=== PATIENT | female | born 1985 | race Caucasian/White ===

== ENCOUNTER 2019-01-01 09:07 | Day surgery (SDC) | payer MEDICAID ==
[2018-12-30 12:27] VITALS: BMI 24.3
--- NOTE | 2019-01-01 07:57 | P.GSHP ---
History of Present Illness H&P Date: 01/01/19 CHIEF COMPLAINT: GERD and colon screen HISTORY OF PRESENT ILLNESS: The patient is a 33-year-old female who presents with gastroesophageal reflux disease and change in bowel habits Upper and lower endoscopy were offered for further evaluation and management. PAST MEDICAL HISTORY: Please see list. PAST SURGICAL HISTORY: Please see list. MEDICATIONS: Please see list. ALLERGIES: Please see list. SOCIAL HISTORY: No illicit drug use FAMILY HISTORY: No reports of Crohn disease or ulcerative colitis. REVIEW OF ORGAN SYSTEMS: CONSTITUTIONAL: No reports of fevers or chills. PHYSICAL EXAM: VITAL SIGNS: Stable GENERAL: Well-developed pleasant in no acute distress. HEENT: No scleral icterus. Extraocular movements grossly intact. Moist buccal mucosa. NECK: Supple without lymphadenopathy. CHEST: Unlabored respirations. Equal bilateral excursions. CARDIOVASCULAR: Regular rate and rhythm. Distal 2+ pulses. ABDOMEN: Soft, nondistended. MUSCULOSKELETAL: No clubbing, cyanosis, or edema. ASSESSMENT: 1. Gastroesophageal reflux disease 2. Change in bowel habits PLAN: 1. Recommend proceeding with an upper and lower endoscopy Past Medical History Past Medical History: Asthma, GERD/Reflux, Rheumatoid Arthritis (RA), Thyroid Disorder Additional Past Medical History / Comment(s): ENDOMETRIOSIS. PCOS History of Any Multi-Drug Resistant Organisms: None Reported Past Surgical History: Cholecystectomy, Tubal Ligation Additional Past Surgical History / Comment(s): Cervical conization 08/2017 Past Anesthesia/Blood Transfusion Reactions: No Reported Reaction Smoking Status: Former smoker - Past Family History Father Family Medical History: Hyperlipidemia, Hypertension Mother Family Medical History: Hypertension Medications and Allergies Home Medications Medication Instructions Recorded Confirmed Type Levothyroxine Sodium [Synthroid] 75 mcg PO DAILY 05/08/18 12/30/18 History Ibuprofen [Motrin] 600 mg PO Q8HR PRN #30 tab 05/10/18 12/30/18 Rx Adalimumab [Humira Pen] 40 mg SQ Q14D 12/30/18 12/30/18 History Biotin 5,000 mcg PO DAILY 12/30/18 12/30/18 History Folic Acid 2 mg PO DAILY 12/30/18 12/30/18 History Lansoprazole [Prevacid] 30 mg PO DAILY 12/30/18 12/30/18 History Methotrexate/Pf [Rasuvo 30 mg/0.6 30 mg SQ Q14D 12/30/18 12/30/18 History ml Autoinj] Allergies Allergy/AdvReac Type Severity Reaction Status Date / Time azithromycin AdvReac Severe Abdominal Verified 12/30/18 12:15 Pain
[~2019-01-01 09:07] MED LIST: LACTATED RINGERS 1,000 ML IV SCH; LIDOCAINE 1% 20 ML VIAL (10MG/ML) FOR IV START INTRADERMA PRN
[2019-01-01 10:09] VITALS: RESP 16; TEMP 98
[2019-01-01] MEDS ORDERED: PROPOFOL 10 MG/ML 20 ML VIAL IV ONE (10:31)
[2019-01-01] MEDS ORDERED: LIDOCAINE 1% INJ 10MG/ML (20 ML MDV) ONE (10:31)
[2019-01-01] MEDS ORDERED: GLYCOPYRROLATE 0.2 MG/ML 2 ML VIAL ONE (10:31)
--- NOTE | 2019-01-01 10:49 | P.PCN ---
Date of Procedure: 01/01/19 Description of Procedure: PREOPERATIVE DIAGNOSIS: Gastroesophageal reflux disease. POSTOPERATIVE DIAGNOSIS: Gastric polyps Gastroesophageal junction ulcer with active bleeding Gastroesophageal reflux disease. OPERATION: Esophagogastroduodenoscopy with biopsies along antrum. SURGEON: Jenna Del Real MD ANESTHESIA: MAC. INDICATIONS: The patient is a 35-year-old female who presents with a history of reflux disease. Benefits and risks of the procedure were described. Informed consent was obtained. DESCRIPTION: The patient was brought into the endoscopy suite and laid in the left lateral decubitus position. An Olympus gastroscope was passed along the posterior oropharynx down to the distal esophagus where the squamocolumnar junction was encountered at 40 cm from the incisors. The stomach was entered and no bile reflux was found. Additional findings are listed below. Biopsies with cold forc eps were obtained of the antrum. The first through third portion of the duodenum was examined and unremarkable. Retroflexion of the scope confirmed Hill grade 2 lower esophageal valve. The squamocolumnar junction demonstrated LA grade A erosive esophagitis. The stomach was desufflated. The patient tolerated the procedure well. FINDINGS: Squamocolumnar junction 40 cm from the incisors. Diaphragmatic hiatus at 40 cm. Hill grade 2 lower esophageal valve. LA grade A erosive esophagitis with ulceration and active bleeding along GE junction No active duodenitis. Chronic gastritis with benign gastric polyps RECOMMENDATIONS: Upper endoscopy as needed.
--- NOTE | 2019-01-01 11:00 | P.PCN ---
Date of Procedure: 01/01/19 Description of Procedure: PREOPERATIVE DIAGNOSIS: Change in bowel habits POSTOPERATIVE DIAGNOSIS: Change in bowel habits OPERATION: Colonoscopy to the ileocecal valve and appendiceal orifice. SURGEON: Jenna Del Real MD. ANESTHESIA: MAC. INDICATIONS: The patient is a 33-year-old female who presents with abdominal pain and change in bowel habits. Benefits and risks were described and informed consent was obtained. DESCRIPTION OF PROCEDURE: The patient had undergone Suprep. She had been brought into the operating room and laid in the left lateral decubitus position. After adequate intravenous sedation, the rectum was examined with 2% lidocaine jelly. No external hemorrhoids were encountered. The rectal tone was within normal limits. No lesions were palpated in the rectal vault. An Olympus colonoscope was advanced until the ileocecal valve and appendiceal orifice were clearly viewed. The prep was excellent with clear visualization of the mucosal folds. The scope was removed with visualization of each mucosal fold. No scattered diverticulosis was encountered. No colonic polyps were found. No evidence of focal colitis was found. Retroflexion of the scope demonstrated grade 1 internal hemorrhoids without active bleeding or inflammation. The colon was desufflated. The patient had tolerated the procedure well. Withdrawal time was over 6 minutes. FINDINGS: Aronchick preparation quality scale 1 (1-5) Internal hemorrhoids, grade 1 No external prolapsed hemorrhoids. No arteriovenous malformations. No adenomatous polyps. No sigmoid diverticulosis No focal colitis. RECOMMENDATIONS: Lower endoscopy as needed Plan - Discharge Summary Discharge Rx Participant: Yes New Discharge Prescriptions: Discontinued Ibuprofen [Motrin] 600 mg PO Q8HR PRN #30 tab PRN Reason: Pain No Action Levothyroxine Sodium [Synthroid] 75 mcg PO DAILY Adalimumab [Humira Pen] 40 mg SQ Q14D Methotrexate/Pf [Rasuvo 30 mg/0.6 ml Autoinj] 30 mg SQ Q14D Lansoprazole [Prevacid] 30 mg PO DAILY Folic Acid 2 mg PO DAILY Biotin 5,000 mcg PO DAILY Discharge Medication List Levothyroxine Sodium [Synthroid] 75 mcg PO DAILY 05/08/18 [History] Adalimumab [Humira Pen] 40 mg SQ Q14D 12/30/18 [History] Biotin 5,000 mcg PO DAILY 12/30/18 [History] Folic Acid 2 mg PO DAILY 12/30/18 [History] Lansoprazole [Prevacid] 30 mg PO DAILY 12/30/18 [History] Methotrexate/Pf [Rasuvo 30 mg/0.6 ml Autoinj] 30 mg SQ Q14D 12/30/18 [History] Follow up Appointment(s)/Referral(s): Jenna Del Real MD [STAFF PHYSICIAN] - 01/14/19 Patient Instructions/Handouts: Diet for Stomach Ulcers and Gastritis (ED), Esophagitis (DC) Activity/Diet/Wound Care/Special Instructions: Colonoscopy as needed Discharge Disposition: HOME SELF-CARE
[2019-01-01 11:30] VITALS: BP 109/73; PULSE 71
== END 2019-01-01 10:12 | disposition home or self-care (01) ==
LOC: ORWHC2ENDO 09:07
PROVIDERS: ATTEND Surgery Plastic and Reconstructive Surgery
DX: K22.10 Ulcer of esophagus without bleeding (principal); K29.50 Unspecified chronic gastritis without bleeding; K64.0 First degree hemorrhoids; K31.7 Polyp of stomach and duodenum; K21.9 Gastro-esophageal reflux disease without esophagitis; M06.9 Rheumatoid arthritis, unspecified; E07.9 Disorder of thyroid, unspecified; E28.2 Polycystic ovarian syndrome; Z87.42 Personal history of other diseases of the female genital tract; J45.909 Unspecified asthma, uncomplicated; Z90.49 Acquired absence of other specified parts of digestive tract; Z98.51 Tubal ligation status; Z87.891 Personal history of nicotine dependence; Z82.49 Family history of ischemic heart disease and other diseases of the circulatory system; Z79.890 Hormone replacement therapy; Z79.899 Other long term (current) drug therapy; Z88.1 Allergy status to other antibiotic agents
CPT/HCPCS: 88305; 45378; 43239; J2001; J2704

== ENCOUNTER 2020-03-16 19:22 | Emergency (ER) | payer MEDICAID, BC ==
[2020-03-16] MEDS ORDERED: SODIUM CHLORIDE 0.9% 1,000 ML IV SCH (19:30)
--- NOTE | 2020-03-16 19:36 | ED ---
General Adult HPI - General Chief complaint: Abdominal Pain Stated complaint: post op complications Time Seen by Provider: 03/16/20 19:28 Source: patient, EMS, RN notes reviewed Mode of arrival: EMS Limitations: no limitations - History of Present Illness Initial comments: Patient is a pleasant 35-year-old female presenting to the emergency Department with abdominal discomfort. Onset of symptoms was earlier this morning. Symptoms have progressively worsened since that time. Patient feels weak and chilled today. Patient did have uterine ablation done yesterday. No significant vaginal bleeding. - Related Data Home Medications Medication Instructions Recorded Confirmed Levothyroxine Sodium [Synthroid] 75 mcg PO DAILY 05/08/18 01/01/19 Adalimumab [Humira Pen] 40 mg SQ Q14D 12/30/18 01/01/19 Biotin 5,000 mcg PO DAILY 12/30/18 01/01/19 Folic Acid 2 mg PO DAILY 12/30/18 01/01/19 Lansoprazole [Prevacid] 30 mg PO DAILY 12/30/18 01/01/19 Methotrexate/Pf [Rasuvo 30 mg/0.6 30 mg SQ Q14D 12/30/18 01/01/19 ml Autoinj] Allergies Allergy/AdvReac Type Severity Reaction Status Date / Time azithromycin AdvReac Severe Abdominal Verified 03/16/20 19:29 Pain Review of Systems ROS Statement: Those systems with pertinent positive or pertinent negative responses have been documented in the HPI. ROS Other: All systems not noted in ROS Statement are negative. Constitutional: Reports: fever, chills Eyes: Denies: eye pain ENT: Denies: ear pain Respiratory: Denies: cough, dyspnea Cardiovascular: Denies: chest pain Endocrine: Reports: fatigue Gastrointestinal: Reports: abdominal pain, nausea Genitourinary: Denies: dysuria Musculoskeletal: Denies: back pain Skin: Denies: rash Neurological: Denies: weakness Past Medical History Past Medical History: Rheumatoid Arthritis (RA) Additional Past Medical History / Comment(s): ENDOMETRIOSIS. PCOS History of Any Multi-Drug Resistant Organisms: None Reported Past Surgical History: Ablation, Cholecystectomy, Tubal Ligation Additional Past Surgical History / Comment(s): Cervical conization 08/2017, uterine ablation Past Anesthesia/Blood Transfusion Reactions: No Reported Reaction Past Psychological History: Depression Smoking Status: Never smoker Past Alcohol Use History: Occasional Past Drug Use History: None Reported - Past Family History Father Family Medical History: Hyperlipidemia, Hypertension Mother Family Medical History: Hypertension General Exam Limitations: no limitations General appearance: alert, in no apparent distress Head exam: Present: normocephalic Eye exam: Present: normal appearance Neck exam: Present: normal inspection Respiratory exam: Present: normal lung sounds bilaterally Cardiovascular Exam: Present: tachycardia GI/Abdominal exam: Present: soft, tenderness (Mild to minimal tenderness lower mid abdomen). Absent: distended External exam: Present: normal external exam (RN susanne present) Speculum exam: Present: other (Mild dried blood. No significant drainage) By manual exam: Present: uterine tenderness (Mild) Extremities exam: Present: normal inspection. Absent: pedal edema, calf tenderness Neurological exam: Present: alert Psychiatric exam: Present: normal affect, normal mood Skin exam: Present: normal color Course Vital Signs 03/16/20 03/16/20 03/16/20 19:24 20:19 21:20 Temperature 101.8 F H 100.8 F H Pulse Rate 144 H 152 H 16 L Respiratory 20 24 28 H Rate Blood Pressure 98/60 73/44 95/48 O2 Sat by Pulse 100 99 100 Oximetry 03/16/20 03/16/20 21:48 22:25 Temperature 102.8 F H 102.3 F H Pulse Rate 163 H 160 H Respiratory 28 H 30 H Rate Blood Pressure 106/49 95/39 O2 Sat by Pulse 99 98 Oximetry EKG Findings - EKG Comments: EKG Findings:: Sinus tachycardia 141. SC 120. QRS 74. QT 288. QTC 441. Normal axis. Normal QRS. No acute ST change. Procedures - Sepsis Sepsis Focused Exam #1 Time Sepsis Criteria Met: 22:00 Sepsis Focused Exam Date: 03/16/20 Sepsis Focused Exam Time: 22:54 Sepsis Focused Exam Complete: Yes Vital Signs & RN Notes Reviewed: Yes Capillary Refill: < 2 Seconds: Fingers, Toes Peripheral Pulses: Normal: Radial (R), Radial (L) Skin Color: Normal for Patient Respiratory Exam: normal lung sounds Cardiovascular Exam: tachycardia Medical Decision Making - Medical Decision Making Case was discussed twice with Dr. Stuart who did come evaluate the patient. She also does not see an obvious source of patient's infection. Case was also discussed with Dr. bennett as well as Dr. Sanchez and Dr. Saez. Dr. Daniel Saez did recommend transfer to facility where she had her procedure they will accept. Case was discussed in detail with Dr. Egan, who will accept transfer to [facility]. Patient and family updated. Patient was evaluated several times. Patient's blood pressure has improved following several liters of fluid. Still limited fluid output. Patient does present with severe sepsis however unable to find source of infection at this time. IV antibiotics have been started. Patient did have uterine ablation done yesterday with Dr. An at [facility]. - Lab Data Result diagrams: 03/16/20 19:36 03/16/20 19:36 Lab Results 03/16/20 03/16/20 03/16/20 Range/Units 19:36 19:36 19:36 WBC 15.2 H (3.8-10.6) k/uL RBC 4.01 (3.80-5.40) m/uL Hgb 11.7 (11.4-16.0) gm/dL Hct 35.4 (34.0-46.0) % MCV 88.2 (80.0-100.0) fL MCH 29.2 (25.0-35.0) pg MCHC 33.1 (31.0-37.0) g/dL RDW 14.4 (11.5-15.5) % Plt Count 154 (150-450) k/uL MPV 9.6 Neutrophils % 94 % Lymphocytes % 4 % Monocytes % 2 % Eosinophils % 1 % Basophils % 0 % Neutrophils # 14.2 H (1.3-7.7) k/uL Lymphocytes # 0.5 L (1.0-4.8) k/uL Monocytes # 0.3 (0-1.0) k/uL Eosinophils # 0.1 (0-0.7) k/uL Basophils # 0.0 (0-0.2) k/uL Manual Slide Review Performed PT 10.7 (9.0-12.0) sec INR 1.0 (<1.2) APTT 23.1 (22.0-30.0) sec Sodium (137-145) mmol/L Potassium (3.5-5.1) mmol/L Chloride (98-107) mmol/L Carbon Dioxide (22-30) mmol/L Anion Gap mmol/L BUN (7-17) mg/dL Creatinine (0.52-1.04) mg/dL Est GFR (CKD-EPI)AfAm (>60 ml/min/1.73 sqM) Est GFR (CKD-EPI)NonAf (>60 ml/min/1.73 sqM) Glucose (74-99) mg/dL Lactic Ac Sepsis Rflx Plasma Lactic Acid Augusto (0.7-2.0) mmol/L Calcium (8.4-10.2) mg/dL Total Bilirubin (0.2-1.3) mg/dL AST (14-36) U/L ALT (4-34) U/L Alkaline Phosphatase (38-126) U/L Lactate Dehydrogenase (313-618) U/L C-Reactive Protein (<10.0) mg/L Total Protein (6.3-8.2) g/dL Albumin (3.5-5.0) g/dL Urine Color Dark Yellow Urine Appearance Cloudy H (Clear) Urine pH 5.5 (5.0-8.0) Ur Specific [place] 1.021 (1.001-1.035) Urine Protein 1+ H (Negative) Urine Glucose (UA) Negative (Negative) Urine Ketones Negative (Negative) Urine Blood Negative (Negative) Urine Nitrite Negative (Negative) Urine Bilirubin 1+ H (Negative) Urine Urobilinogen <2.0 (<2.0) mg/dL Ur Leukocyte Esterase Negative (Negative) Urine RBC 1 (0-5) /hpf Urine WBC 16 H (0-5) /hpf Ur Squamous Epith Cells 3 (0-4) /hpf Urine Bacteria Rare H (None) /hpf Hyaline Casts 105 H (0-2) /lpf Granular Casts 1 (0) /lpf Urine Mucus Few H (None) /hpf Coronavirus (PCR) (Not Detectd) 03/16/20 03/16/20 03/16/20 Range/Units 19:36 19:36 19:36 WBC (3.8-10.6) k/uL RBC (3.80-5.40) m/uL Hgb (11.4-16.0) gm/dL Hct (34.0-46.0) % MCV (80.0-100.0) fL MCH (25.0-35.0) pg MCHC (31.0-37.0) g/dL RDW (11.5-15.5) % Plt Count (150-450) k/uL MPV Neutrophils % % Lymphocytes % % Monocytes % % Eosinophils % % Basophils % % Neutrophils # (1.3-7.7) k/uL Lymphocytes # (1.0-4.8) k/uL Monocytes # (0-1.0) k/uL Eosinophils # (0-0.7) k/uL Basophils # (0-0.2) k/uL Manual Slide Review PT (9.0-12.0) sec INR (<1.2) APTT (22.0-30.0) sec Sodium 134 L (137-145) mmol/L Potassium 3.8 (3.5-5.1) mmol/L Chloride 106 (98-107) mmol/L Carbon Dioxide 19 L (22-30) mmol/L Anion Gap 9 mmol/L BUN 16 (7-17) mg/dL Creatinine 1.37 H (0.52-1.04) mg/dL Est GFR (CKD-EPI)AfAm 58 (>60 ml/min/1.73 sqM) Est GFR (CKD-EPI)NonAf 51 (>60 ml/min/1.73 sqM) Glucose 105 H (74-99) mg/dL Lactic Ac Sepsis Rflx Plasma Lactic Acid Augusto 4.4 H* (0.7-2.0) mmol/L Calcium 8.3 L (8.4-10.2) mg/dL Total Bilirubin 0.7 (0.2-1.3) mg/dL AST 27 (14-36) U/L ALT 29 (4-34) U/L Alkaline Phosphatase 51 (38-126) U/L Lactate Dehydrogenase 447 (313-618) U/L C-Reactive Protein 41.5 H (<10.0) mg/L Total Protein 6.5 (6.3-8.2) g/dL Albumin 3.4 L (3.5-5.0) g/dL Urine Color Urine Appearance (Clear) Urine pH (5.0-8.0) Ur Specific [place] (1.001-1.035) Urine Protein (Negative) Urine Glucose (UA) (Negative) Urine Ketones (Negative) Urine Blood (Negative) Urine Nitrite (Negative) Urine Bilirubin (Negative) Urine Urobilinogen (<2.0) mg/dL Ur Leukocyte Esterase (Negative) Urine RBC (0-5) /hpf Urine WBC (0-5) /hpf Ur Squamous Epith Cells (0-4) /hpf Urine Bacteria (None) /hpf Hyaline Casts (0-2) /lpf Granular Casts (0) /lpf Urine Mucus (None) /hpf Coronavirus (PCR) (Not Detectd) 03/16/20 03/16/20 Range/Units 20:15 21:20 WBC (3.8-10.6) k/uL RBC (3.80-5.40) m/uL Hgb (11.4-16.0) gm/dL Hct (34.0-46.0) % MCV (80.0-100.0) fL MCH (25.0-35.0) pg MCHC (31.0-37.0) g/dL RDW (11.5-15.5) % Plt Count (150-450) k/uL MPV Neutrophils % % Lymphocytes % % Monocytes % % Eosinophils % % Basophils % % Neutrophils # (1.3-7.7) k/uL Lymphocytes # (1.0-4.8) k/uL Monocytes # (0-1.0) k/uL Eosinophils # (0-0.7) k/uL Basophils # (0-0.2) k/uL Manual Slide Review PT (9.0-12.0) sec INR (<1.2) APTT (22.0-30.0) sec Sodium (137-145) mmol/L Potassium (3.5-5.1) mmol/L Chloride (98-107) mmol/L Carbon Dioxide (22-30) mmol/L Anion Gap mmol/L BUN (7-17) mg/dL Creatinine (0.52-1.04) mg/dL Est GFR (CKD-EPI)AfAm (>60 ml/min/1.73 sqM) Est GFR (CKD-EPI)NonAf (>60 ml/min/1.73 sqM) Glucose (74-99) mg/dL Lactic Ac Sepsis Rflx Y Plasma Lactic Acid Augusto (0.7-2.0) mmol/L Calcium (8.4-10.2) mg/dL Total Bilirubin (0.2-1.3) mg/dL AST (14-36) U/L ALT (4-34) U/L Alkaline Phosphatase (38-126) U/L Lactate Dehydrogenase (313-618) U/L C-Reactive Protein (<10.0) mg/L Total Protein (6.3-8.2) g/dL Albumin (3.5-5.0) g/dL Urine Color Urine Appearance (Clear) Urine pH (5.0-8.0) Ur Specific [place] (1.001-1.035) Urine Protein (Negative) Urine Glucose (UA) (Negative) Urine Ketones (Negative) Urine Blood (Negative) Urine Nitrite (Negative) Urine Bilirubin (Negative) Urine Urobilinogen (<2.0) mg/dL Ur Leukocyte Esterase (Negative) Urine RBC (0-5) /hpf Urine WBC (0-5) /hpf Ur Squamous Epith Cells (0-4) /hpf Urine Bacteria (None) /hpf Hyaline Casts (0-2) /lpf Granular Casts (0) /lpf Urine Mucus (None) /hpf Coronavirus (PCR) Not Detected (Not Detectd) - Radiology Data Radiology results: report reviewed (Computed tomography scan abdomen pelvis does show some free fluid in the cul-de-sac. Intrauterine air consistent with recent surgery.), image reviewed (chest x-ray shows no acute process) Critical Care Time Critical Care Time: Yes Total Critical Care Time: 35 Disposition Clinical Impression: Septic shock Disposition: OTHER INSTITUTION NOT DEFINED Condition: Serious Is patient prescribed a controlled substance at d/c from ED?: No Referrals: Roger Zayas DO [Primary Care Provider] - 1-2 days Time of Disposition: 22:55 - Out of Hospital Transfer - Req. Specs Out of Hospital Transfer - Requested Specifics: Other Emergency Center
[2020-03-16] MEDS: SODIUM CHLORIDE 0.9% 500 ML 500 ML IV SCH ×2 (19:37→19:38)
[2020-03-16 19:50] LABS: Basophils % (A) 0 %; Eosinophils # (A) 0.1 k/uL (0-0.7); Eosinophils % (A) 1 %; HCT 35.4 % (34.0-46.0); HGB 11.7 gm/dL (11.4-16.0); Lymphocytes # (A) 0.5 k/uL (1.0-4.8); Lymphocytes % (A) 4 %; MCH 29.2 pg (25.0-35.0); MCHC 33.1 g/dL (31.0-37.0); MCV 88.2 fL (80.0-100.0); Mean Platelet Volume 9.6; Monocytes # (A) 0.3 k/uL (0-1.0); Monocytes % (A) 2 %; Neutrophils # (A) 14.2 k/uL (1.3-7.7); Neutrophils % (A) 94 %; Platelet Count 154 k/uL (150-450); RBC 4.01 m/uL (3.80-5.40); RDW 14.4 % (11.5-15.5); WBC 15.2 k/uL (3.8-10.6)
[2020-03-16 19:54] LABS: Appearance,Urine Cloudy (Clear); Bacteria,Urine Rare /hpf; Bilirubin,Urine 1+ (Negative); Blood,Urine Negative (Negative); Color,Urine Dark Yellow; Glucose,Urine (UA) Negative (Negative); Granular Casts,Urine 1 /lpf (0); Hyaline Casts,Urine 105 /lpf (0-2); Ketones,Urine Negative (Negative); Leukocyte Esterase,Urine Negative (Negative); Mucus,Urine Few /hpf; Nitrite,Urine Negative (Negative); PH, Urine 5.5 (5.0-8.0); Protein,Urine 1+ (Negative); RBC,Urine 1 /hpf (0-5); Specific Gravity,Urine 1.021 (1.001-1.035); Squamous Epithelial Cell,Urine 3 /hpf (0-4); Urobilinogen,Urine <2.0 mg/dL (<2.0); WBC,Urine 16 /hpf (0-5)
--- NOTE | 2020-03-16 19:55 | XR ---
EXAMINATION TYPE: XR chest 1V portable DATE OF EXAM: 03/16/2020 COMPARISON: NONE HISTORY: Fever TECHNIQUE: FINDINGS: Heart and mediastinum are normal. Lungs are clear. Diaphragm is normal. Bony thorax appears normal. There are chest leads. IMPRESSION: Normal chest.
[2020-03-16 19:56] LABS: Albumin 3.4 g/dL (3.5-5.0); Calcium 8.3 mg/dL (8.4-10.2); Potassium 3.8 mmol/L (3.5-5.1); Total Bilirubin 0.7 mg/dL (0.2-1.3); Total Protein 6.5 g/dL (6.3-8.2)
[2020-03-16 20:10] LABS: Partial Thromboplastin Time 23.1 sec (22.0-30.0); Prothrombin Time 10.7 sec (9.0-12.0)
--- NOTE | 2020-03-16 20:15 | CT ---
EXAMINATION TYPE: CT abdomen pelvis w con DATE OF EXAM: 03/16/2020 COMPARISON: 05/08/2018 HISTORY: Abdominal pain post uterine ablation CT DLP: 1160.4 mGycm Automated exposure control for dose reduction was used. CONTRAST: Performed with IV Contrast, patient injected with 100 mL of Isovue 300. Images were obtained from the diaphragm to the floor the pelvis with IV contrast. Lung bases are clear of consolidation. There is no pleural effusion. Heart size is normal. Liver spleen pancreas stomach appear normal. Bile ducts are not dilated. Gallbladder appears absent. There is no adrenal mass. Kidneys show satisfactory contrast opacification. There is no hydronephrosi s. There is 1 cm cortical cyst posterior left kidney. Delayed images show no evidence of renal obstru ction. There is slight decreased contrast in the renal collecting systems on the delayed images. Uret ers are not dilated. There is no retroperitoneal adenopathy. Uterus is retroverted. There is air in the endometrial cavity consistent with recent surgery. There i s free fluid in the cul-de-sac. There is Faye catheter in the urinary bladder. Bladder is empty. Appendix is not seen. There is no sign of thickened appendix. There is no mesenteric edema. There is no evidence of free air. There is no bowel obstruction. Lumbar vertebra have normal spacing and alignment. Posterior elements are intact. There is no ophelia dwight fracture. Bony pelvis is intact. IMPRESSION: There is some free fluid in the cul-de-sac. Intrauterine air consistent with recent surgery.
[2020-03-16] MEDS ORDERED: SODIUM CHLORIDE 0.9% 1,000 ML IV STA (20:22)
[2020-03-16] MEDS ORDERED: ACETAMINOPHEN TAB 500 MG TAB PO STA (20:22)
[2020-03-16] MEDS ORDERED: AMPICILLIN-SULBACTAM 3 GM in SODIUM CHLORIDE 0.9% 100 ML IVPB STA (20:38)
[2020-03-16] MEDS ORDERED: DOXYCYCLINE 100 MG in SODIUM CHLORIDE 0.9% 100 ML IVPB ONE (20:39)
[2020-03-16] MEDS ORDERED: DOXYCYCLINE 100 MG in SODIUM CHLORIDE 0.9% 100 ML IVPB SCH (21:00)
[2020-03-16] MEDS ORDERED: SODIUM CHLORIDE 0.9% 2,000 ML IV ONE (21:23)
[2020-03-16] MEDS ORDERED: VANCOMYCIN IV PER PHARMACY 1 EACH MISC MISCELLANE PRN (21:24)
[2020-03-16] MEDS ORDERED: VANCOMYCIN 1,250 MG in SODIUM CHLORIDE 0.9% 250 ML IVPB ONE (21:45)
[2020-03-16] MEDS ORDERED: HYDROCORTISONE SUCCINATE 100 MG/2 ML VIAL IV SCH (22:00)
[2020-03-16 22:30] LABS: C Reactive Protein 41.5 mg/L (<10.0)
[2020-03-16] MEDS ORDERED: ACETAMINOPHEN IV (For NPO) 1,000 MG in EMPTY BAG 1 BAG IVPB ONE (22:30)
--- NOTE | 2020-03-16 22:41 | P.OBCN ---
History of Present Illness Consult date: 03/16/20 Requesting physician: Casa Black Reason for consult: pelvic pain Chief complaint: Pain one day status post endometrial ablation procedure History of present illness: This is a 35-year-old 3 para 3 woman who had a NovaSure endometrial ablation procedure done on 03/15/2020 at [facility]. She reports that her surgeon said the procedure went well and she was discharged home initially feeling good. She rested throughout the day yesterday and through the night however starting this morning she had increasing lower abdominal pain and high fever. She reports feeling like she was going to pass out. Her the noted that she was quite pale and her lips turned blue and she was not "acting herself" therefore he brought her to the hospital. She denies heavy vaginal bleeding, blood in the stool or urine, or inability to void. She denies previous history of gynecologic problems and had the ablation done for heavy menses. She is complaining of nausea and pain in the low abdomen currently. Gynecologic history is otherwise significant for 3 term vaginal deliveries and an abnormal Pap smear requiring cervical cold knife cone biopsy. No history of pelvic inflammatory disease. She has had a tubal ligation. Review of Systems Constitutional: Reports chills, Reports fever Cardiovascular: Reports lightheadedness, Reports rapid heart beat, Denies chest pain, Denies dyspnea on exertion, Denies shortness of breath Respiratory: Denies congestion, Denies cough, Denies dyspnea Gastrointestinal: Reports abdominal pain, Reports constipation, Reports nausea, Denies BRBPR, Denies change in bowel habits, Denies diarrhea, Denies heartburn Genitourinary: Reports pelvic pain, Reports vaginal discharge, Denies abnormal vaginal bleeding, Denies difficulty voiding, Denies hematuria Menstruation: Reports as per HPI Musculoskeletal: Denies low back pain Integumentary: Denies rash Neurological: Denies headaches Hematologic/Lymphatic: Denies easy bleeding, Denies easy bruising Past Medical History Past Medical History: Rheumatoid Arthritis (RA) Additional Past Medical History / Comment(s): ENDOMETRIOSIS. PCOS History of Any Multi-Drug Resistant Organisms: None Reported Past Surgical History: Ablation (03/15/2020 [facility]), Cholecystectomy, Tubal Ligation Additional Past Surgical History / Comment(s): Cervical conization 08/2017, uterine ablation Past Anesthesia/Blood Transfusion Reactions: No Reported Reaction Past Psychological History: Depression Smoking Status: Never smoker Past Alcohol Use History: Occasional Past Drug Use History: None Reported - Past Family History Father Family Medical History: Hyperlipidemia, Hypertension Mother Family Medical History: Hypertension Medications and Allergies Home Medications Medication Instructions Recorded Confirmed Type Levothyroxine Sodium [Synthroid] 75 mcg PO DAILY 05/08/18 01/01/19 History Adalimumab [Humira Pen] 40 mg SQ Q14D 12/30/18 01/01/19 History Biotin 5,000 mcg PO DAILY 12/30/18 01/01/19 History Folic Acid 2 mg PO DAILY 12/30/18 01/01/19 History Lansoprazole [Prevacid] 30 mg PO DAILY 12/30/18 01/01/19 History Methotrexate/Pf [Rasuvo 30 mg/0.6 30 mg SQ Q14D 12/30/18 01/01/19 History ml Autoinj] Allergies Allergy/AdvReac Type Severity Reaction Status Date / Time azithromycin AdvReac Severe Abdominal Verified 03/16/20 19:29 Pain Exam Vital Signs Temp Pulse Resp BP Pulse Ox 03/16/20 21:48 102.8 F H 163 H 28 H 106/49 99 03/16/20 21:20 16 L 28 H 95/48 100 03/16/20 20:19 100.8 F H 152 H 24 73/44 99 03/16/20 19:24 101.8 F H 144 H 20 98/60 100 Intake and Output 03/16/20 03/16/20 03/16/20 06:59 14:59 22:59 Other: Weight 70.307 kg This is an acutely ill, pale female. Majority of history is obtained from the . Patient answers yes or no questions. She is in obvious distress. Targeted physical exam is performed. The abdomen is soft with no rebound or guarding. She has generalized bilateral and suprapubic pain with moderate to deep palpation. Abdomen does not appear distended. She has no flank pain. On pelvic examination she has normal female external genitalia. Faye catheter is in place with stephanie-colored urine. There is no active vaginal bleeding noted. On bimanual examination there is some tenderness however appropriate to recent postop status. Speculum examination previously performed by emergency room physician was remarkable for a scant amount of bloody drainage consistent with post-ablation. Results Result Diagrams: 03/16/20 19:36 03/16/20 19:36 Abnormal Lab Results - Last 24 Hours (Table) 03/16/20 03/16/20 03/16/20 Range/Units 19:36 19:36 19:36 WBC 15.2 H (3.8-10.6) k/uL Neutrophils # 14.2 H (1.3-7.7) k/uL Lymphocytes # 0.5 L (1.0-4.8) k/uL Sodium 134 L (137-145) mmol/L Carbon Dioxide 19 L (22-30) mmol/L Creatinine 1.37 H (0.52-1.04) mg/dL Glucose 105 H (74-99) mg/dL Plasma Lactic Acid Augusto (0.7-2.0) mmol/L Calcium 8.3 L (8.4-10.2) mg/dL Albumin 3.4 L (3.5-5.0) g/dL Urine Appearance Cloudy H (Clear) Urine Protein 1+ H (Negative) Urine Bilirubin 1+ H (Negative) Urine WBC 16 H (0-5) /hpf Urine Bacteria Rare H (None) /hpf Hyaline Casts 105 H (0-2) /lpf Urine Mucus Few H (None) /hpf 03/16/20 Range/Units 19:36 WBC (3.8-10.6) k/uL Neutrophils # (1.3-7.7) k/uL Lymphocytes # (1.0-4.8) k/uL Sodium (137-145) mmol/L Carbon Dioxide (22-30) mmol/L Creatinine (0.52-1.04) mg/dL Glucose (74-99) mg/dL Plasma Lactic Acid Augusto 4.4 H* (0.7-2.0) mmol/L Calcium (8.4-10.2) mg/dL Albumin (3.5-5.0) g/dL Urine Appearance (Clear) Urine Protein (Negative) Urine Bilirubin (Negative) Urine WBC (0-5) /hpf Urine Bacteria (None) /hpf Hyaline Casts (0-2) /lpf Urine Mucus (None) /hpf CT scan - abdomen: report reviewed, image reviewed CT scan - pelvis: report reviewed, image reviewed (Retroverted uterus with air in the endometrial cavity and small amount of free fluid in the pelvis noted. Both consistent with normal post ablation findings.) Assessment and Plan (1) Abdominal pain Current Visit: Yes Status: Acute Code(s): R10.9 - UNSPECIFIED ABDOMINAL PAIN SNOMED Code(s): 59677663 (2) Pelvic pain Current Visit: Yes Status: Acute Code(s): R10.2 - PELVIC AND PERINEAL PAIN SNOMED Code(s): 57657320 (3) S/P endometrial ablation Current Visit: Yes Status: Acute Code(s): Z98.890 - OTHER SPECIFIED POSTPROCEDURAL STATES SNOMED Code(s): 739418253720370 (4) Sepsis Current Visit: Yes Status: Acute Code(s): A41.9 - SEPSIS, UNSPECIFIED ORGANISM SNOMED Code(s): 97618862 Plan: This is a 35-year-old 3 para 3 woman who is postop day 1 status post NovaSure endometrial ablation at an outlying facility. She has a 12 hour history of worsening abdominal pain and fevers. She is tachycardic, hypotensive and has an elevated white blood cell count consistent with sepsis. Source is unclear however consideration for uterine perforation and bowel injury should be made although this is an early presentation for bowel injury. Currently computed tomography scan is not consistent with that finding. Pelvic ultrasound is pending. Recommend broad-spectrum antibiotic coverage and medicine/general surgery consultation. Recommend Obtain medical records from outside facility so I can review operative report and findings. It is highly unusual for an individual to be this acutely ill following an uncomplicated endometrial ablation procedure.
[2020-03-16 22:54] VITALS: RESP 24
[2020-03-16 23:18] VITALS: BP 91/43; TEMP 101
[2020-03-17] MEDS ORDERED: AMPICILLIN-SULBACTAM 3 GM in SODIUM CHLORIDE 0.9% 100 ML IVPB SCH ×2
[2020-03-17 01:01] VITALS: PULSE 168
[2020-03-17] MEDS ORDERED: PANTOPRAZOLE 40 MG/10 ML VIAL IV SCH (09:00)
[2020-03-17] MEDS ORDERED: VANCOMYCIN 1,250 MG in SODIUM CHLORIDE 0.9% 250 ML IVPB SCH (10:00)
== END 2020-03-16 23:20 | disposition other institution (70) ==
LOC: EC 19:22
DX: A41.9 Sepsis, unspecified organism (principal); R65.21 Severe sepsis with septic shock; R00.0 Tachycardia, unspecified; M06.9 Rheumatoid arthritis, unspecified; Z79.890 Hormone replacement therapy; Z79.899 Other long term (current) drug therapy; Z88.1 Allergy status to other antibiotic agents; Z20.828 Contact with and (suspected) exposure to other viral communicable diseases; Z90.49 Acquired absence of other specified parts of digestive tract; Z98.51 Tubal ligation status; Z98.890 Other specified postprocedural states
CPT/HCPCS: 36415; 93005; 86900; 86901; 80053; 83605; 83615; 85025; 85610; 85730; 86850; 86140; 81001; 87040; 87070; 87086; 87077; 87186; 87635; 71045; 74177; 99291; 96365; 96366; 96367 ×2; 96368; 96375; 96361 ×3; J3370; J1720; J0295; J0131; Q9967

== ENCOUNTER 2020-03-29 19:51 | Observation (INO) | payer MEDICAID, BC ==
--- NOTE | 2020-03-29 20:21 | ED ---
General Adult HPI - General Chief complaint: Shortness of Breath Stated complaint: Dyspnea Time Seen by Provider: 03/29/20 20:06 Source: patient, RN notes reviewed Mode of arrival: ambulatory Limitations: no limitations - History of Present Illness Initial comments: Patient is a pleasant 35-year-old female presenting to the emergency Department with shortness of breath and right-sided rib discomfort. Onset of symptoms was a couple of days ago. Patient was in the hospital a couple of weeks ago and transferred for emergent hysterectomy. Patient was diagnosed with E. coli infection. Patient states she has been out of the hospital for 5 days. Last couple of days patient has had some increased fatigue and dyspnea with exertion. Occasional cough. Patient does have some discomfort right lower ribs anterior lateral that increases with cough and deep inspiration. Discomfort is mild. No leg pain or leg swelling - Related Data Home Medications Medication Instructions Recorded Confirmed Levothyroxine Sodium [Synthroid] 75 mcg PO DAILY 05/08/18 03/29/20 Biotin 5,000 mcg PO DAILY 12/30/18 03/29/20 Folic Acid 1 mg PO DAILY 12/30/18 03/29/20 Lansoprazole [Prevacid] 30 mg PO DAILY 12/30/18 03/29/20 Abatacept [Orencia Clickject] 125 mg SQ DIRECTED 03/29/20 03/29/20 Amoxic-Pot Clav 875-125Mg 1 tab PO Q12H 03/29/20 03/29/20 [Augmentin 875-125] Cetirizine HCl [Zyrtec] 10 mg PO DAILY 03/29/20 03/29/20 Cholecalciferol [Vitamin D3 (25 5,000 unit PO DAILY 03/29/20 03/29/20 Mcg = 1000 Iu)] DULoxetine HCL [Cymbalta] 30 mg PO BID 03/29/20 03/29/20 Fluticasone/Vilanterol [Breo 1 puff INHALATION RT-DAILY 03/29/20 03/29/20 Ellipta 100-25 Mcg Inhaler] Furosemide [Lasix] 20 mg PO BID PRN 03/29/20 03/29/20 Krill Oil 500 mg PO DAILY 03/29/20 03/29/20 L.acidoph,Paracasei, B.lactis 1 cap PO BID 03/29/20 03/29/20 [Probiotic] Rizatriptan Benzoate [Maxalt] 10 mg PO BID PRN 03/29/20 03/29/20 sulfaSALAzine [Sulfasalazine] 500 mg PO Q12H 03/29/20 03/29/20 Allergies Allergy/AdvReac Type Severity Reaction Status Date / Time azithromycin AdvReac Severe Abdominal Verified 03/29/20 21:13 Pain Review of Systems ROS Statement: Those systems with pertinent positive or pertinent negative responses have been documented in the HPI. ROS Other: All systems not noted in ROS Statement are negative. Constitutional: Denies: fever Eyes: Denies: eye pain ENT: Denies: ear pain Respiratory: Reports: as per HPI, dyspnea Cardiovascular: Reports: as per HPI Endocrine: Reports: fatigue Gastrointestinal: Denies: abdominal pain Genitourinary: Denies: dysuria Musculoskeletal: Denies: back pain Skin: Denies: rash Neurological: Denies: weakness Past Medical History Past Medical History: Rheumatoid Arthritis (RA) Additional Past Medical History / Comment(s): ENDOMETRIOSIS. PCOS History of Any Multi-Drug Resistant Organisms: None Reported Past Surgical History: Cholecystectomy, Tubal Ligation Additional Past Surgical History / Comment(s): Cervical conization 08/2017, uterine ablation Past Anesthesia/Blood Transfusion Reactions: No Reported Reaction Past Psychological History: Depression Smoking Status: Never smoker Past Alcohol Use History: Occasional Past Drug Use History: None Reported - Past Family History Father Family Medical History: Hyperlipidemia, Hypertension Mother Family Medical History: Hypertension General Exam Limitations: no limitations General appearance: alert, in no apparent distress Head exam: Present: normocephalic Eye exam: Present: normal appearance Neck exam: Present: normal inspection Respiratory exam: Present: normal lung sounds bilaterally. Absent: chest wall tenderness Cardiovascular Exam: Present: tachycardia GI/Abdominal exam: Present: soft. Absent: distended, tenderness, guarding, re bound, rigid Extremities exam: Present: normal inspection. Absent: pedal edema, calf tenderness Neurological exam: Present: alert Psychiatric exam: Present: normal affect, normal mood Skin exam: Present: normal color Course Vital Signs 03/29/20 03/29/20 03/29/20 19:54 20:31 21:03 Temperature 98.6 F 100.1 F H Pulse Rate 106 H 99 Respiratory 18 20 Rate Blood Pressure 131/79 140/72 O2 Sat by Pulse 100 100 Oximetry EKG Findings - EKG Comments: EKG Findings:: Sinus tachycardia 103. NE 128. QRS 76. QT 340. QTc 445. Normal axis. Normal QRS. No acute ST change. Medical Decision Making - Medical Decision Making Patient reevaluated and updated. Case discussed with Dr. Gomez, who will admit [facility]. He does recommend IV fluids and a dose of Zosyn. - Lab Data Result diagrams: 03/29/20 20:25 03/29/20 20:25 Lab Results 03/29/20 03/29/20 03/29/20 Range/Units 20:25 20:25 20:25 WBC 11.0 H (3.8-10.6) k/uL RBC 3.94 (3.80-5.40) m/uL Hgb 11.3 L (11.4-16.0) gm/dL Hct 34.1 (34.0-46.0) % MCV 86.5 (80.0-100.0) fL MCH 28.8 (25.0-35.0) pg MCHC 33.3 (31.0-37.0) g/dL RDW 14.3 (11.5-15.5) % Plt Count 577 H D (150-450) k/uL MPV 8.5 Neutrophils % 52 % Lymphocytes % 32 % Monocytes % 7 % Eosinophils % 4 % Basophils % 2 % Neutrophils # 5.7 (1.3-7.7) k/uL Lymphocytes # 3.5 (1.0-4.8) k/uL Monocytes # 0.8 (0-1.0) k/uL Eosinophils # 0.4 (0-0.7) k/uL Basophils # 0.2 (0-0.2) k/uL PT 10.0 (9.0-12.0) sec INR 1.0 (<1.2) APTT 25.4 (22.0-30.0) sec Sodium 139 (137-145) mmol/L Potassium 3.8 (3.5-5.1) mmol/L Chloride 102 (98-107) mmol/L Carbon Dioxide 23 (22-30) mmol/L Anion Gap 14 mmol/L BUN 11 (7-17) mg/dL Creatinine 0.77 (0.52-1.04) mg/dL Est GFR (CKD-EPI)AfAm >90 (>60 ml/min/1.73 sqM) Est GFR (CKD-EPI)NonAf >90 (>60 ml/min/1.73 sqM) Glucose 112 H (74-99) mg/dL Plasma Lactic Acid Augusto (0.7-2.0) mmol/L Calcium 9.6 (8.4-10.2) mg/dL Total Bilirubin 0.4 (0.2-1.3) mg/dL AST 34 (14-36) U/L ALT 40 H (4-34) U/L Alkaline Phosphatase 91 (38-126) U/L Troponin I (0.000-0.034) ng/mL NT-Pro-B Natriuret Pep pg/mL Total Protein 8.9 H (6.3-8.2) g/dL Albumin 4.7 (3.5-5.0) g/dL Coronavirus (PCR) (Not Detectd) 03/29/20 03/29/20 03/29/20 Range/Units 20:25 20:25 20:25 WBC (3.8-10.6) k/uL RBC (3.80-5.40) m/uL Hgb (11.4-16.0) gm/dL Hct (34.0-46.0) % MCV (80.0-100.0) fL MCH (25.0-35.0) pg MCHC (31.0-37.0) g/dL RDW (11.5-15.5) % Plt Count (150-450) k/uL MPV Neutrophils % % Lymphocytes % % Monocytes % % Eosinophils % % Basophils % % Neutrophils # (1.3-7.7) k/uL Lymphocytes # (1.0-4.8) k/uL Monocytes # (0-1.0) k/uL Eosinophils # (0-0.7) k/uL Basophils # (0-0.2) k/uL PT (9.0-12.0) sec INR (<1.2) APTT (22.0-30.0) sec Sodium (137-145) mmol/L Potassium (3.5-5.1) mmol/L Chloride (98-107) mmol/L Carbon Dioxide (22-30) mmol/L Anion Gap mmol/L BUN (7-17) mg/dL Creatinine (0.52-1.04) mg/dL Est GFR (CKD-EPI)AfAm (>60 ml/min/1.73 sqM) Est GFR (CKD-EPI)NonAf (>60 ml/min/1.73 sqM) Glucose (74-99) mg/dL Plasma Lactic Acid Augusto 3.0 H* (0.7-2.0) mmol/L Calcium (8.4-10.2) mg/dL Total Bilirubin (0.2-1.3) mg/dL AST (14-36) U/L ALT (4-34) U/L Alkaline Phosphatase (38-126) U/L Troponin I <0.012 (0.000-0.034) ng/mL NT-Pro-B Natriuret Pep 381 pg/mL Total Protein (6.3-8.2) g/dL Albumin (3.5-5.0) g/dL Coronavirus (PCR) (Not Detectd) 03/29/20 Range/Units 20:35 WBC (3.8-10.6) k/uL RBC (3.80-5.40) m/uL Hgb (11.4-16.0) gm/dL Hct (34.0-46.0) % MCV (80.0-100.0) fL MCH (25.0-35.0) pg MCHC (31.0-37.0) g/dL RDW (11.5-15.5) % Plt Count (150-450) k/uL MPV Neutrophils % % Lymphocytes % % Monocytes % % Eosinophils % % Basophils % % Neutrophils # (1.3-7.7) k/uL Lymphocytes # (1.0-4.8) k/uL Monocytes # (0-1.0) k/uL Eosinophils # (0-0.7) k/uL Basophils # (0-0.2) k/uL PT (9.0-12.0) sec INR (<1.2) APTT (22.0-30.0) sec Sodium (137-145) mmol/L Potassium (3.5-5.1) mmol/L Chloride (98-107) mmol/L Carbon Dioxide (22-30) mmol/L Anion Gap mmol/L BUN (7-17) mg/dL Creatinine (0.52-1.04) mg/dL Est GFR (CKD-EPI)AfAm (>60 ml/min/1.73 sqM) Est GFR (CKD-EPI)NonAf (>60 ml/min/1.73 sqM) Glucose (74-99) mg/dL Plasma Lactic Acid Augusto (0.7-2.0) mmol/L Calcium (8.4-10.2) mg/dL Total Bilirubin (0.2-1.3) mg/dL AST (14-36) U/L ALT (4-34) U/L Alkaline Phosphatase (38-126) U/L Troponin I (0.000-0.034) ng/mL NT-Pro-B Natriuret Pep pg/mL Total Protein (6.3-8.2) g/dL Albumin (3.5-5.0) g/dL Coronavirus (PCR) Not Detected (Not Detectd) - Radiology Data Radiology results: image reviewed (Chest x-ray shows no acute process) Disposition Clinical Impression: Dyspnea Disposition: ADMITTED IP TO THIS HOSP Is patient prescribed a controlled substance at d/c from ED?: No Referrals: [facility] [place] [Primary Care Provider] - 1-2 days Decision Time: 22:10
[2020-03-29] MEDS ORDERED: ACETAMINOPHEN TAB 500 MG TAB PO STA (20:39)
[2020-03-29 20:43] LABS: Basophils # (A) 0.2 k/uL (0-0.2); Basophils % (A) 2 %; Eosinophils # (A) 0.4 k/uL (0-0.7); Eosinophils % (A) 4 %; HCT 34.1 % (34.0-46.0); HGB 11.3 gm/dL (11.4-16.0); Lymphocytes # (A) 3.5 k/uL (1.0-4.8); Lymphocytes % (A) 32 %; MCH 28.8 pg (25.0-35.0); MCHC 33.3 g/dL (31.0-37.0); MCV 86.5 fL (80.0-100.0); Mean Platelet Volume 8.5; Monocytes # (A) 0.8 k/uL (0-1.0); Monocytes % (A) 7 %; Neutrophils # (A) 5.7 k/uL (1.3-7.7); Neutrophils % (A) 52 %; RBC 3.94 m/uL (3.80-5.40); RDW 14.3 % (11.5-15.5)
--- NOTE | 2020-03-29 20:47 | XR ---
EXAMINATION TYPE: XR chest 1V portable DATE OF EXAM: 03/29/2020 COMPARISON: 03/16/2020 HISTORY: Short of breath cough. TECHNIQUE: FINDINGS: Heart and mediastinum are normal. Lungs are clear. Diaphragm is normal. Bony thorax is norm al. IMPRESSION: Normal chest. No change.
[2020-03-29 20:50] LABS: Platelet Count 577 k/uL (150-450)
[2020-03-29 20:52] LABS: Partial Thromboplastin Time 25.4 sec (22.0-30.0)
[2020-03-29 20:55] LABS: ALT 40 U/L (4-34); AST 34 U/L (14-36); African American GFR (CKD) >90 (>60 ml/min/1.73 sqM); Albumin 4.7 g/dL (3.5-5.0); Alkaline Phosphatase 91 U/L (38-126); Anion Gap 14 mmol/L; Blood Urea Nitrogen 11 mg/dL (7-17); Calcium 9.6 mg/dL (8.4-10.2); Carbon Dioxide 23 mmol/L (22-30); Chloride 102 mmol/L (98-107); Glucose 112 mg/dL (74-99); Non-African American GFR(CKD) >90 (>60 ml/min/1.73 sqM); Potassium 3.8 mmol/L (3.5-5.1); Sodium 139 mmol/L (137-145); Total Bilirubin 0.4 mg/dL (0.2-1.3); Total Protein 8.9 g/dL (6.3-8.2)
[2020-03-29] MEDS ORDERED: SODIUM CHLORIDE 0.9% 1,000 ML IV STA ×2 (21:09→22:11)
--- NOTE | 2020-03-29 21:53 | CT ---
EXAMINATION TYPE: CT angio chest DATE OF EXAM: 03/29/2020 COMPARISON: None HISTORY: right sided pain/pressure CT DLP: 336.6 mGycm Automated exposure control for dose reduction was used. CONTRAST: Performed with IV Contrast, patient injected with 100 mL of Isovue 370. There are 3-D post processed images. The lungs are clear of infiltrate. There is no pleural effusion or pneumothorax. There is no mediasti nal adenopathy. Thoracic aorta appears normal. There is no aneurysm or dissection. There are no hilar masses. Heart size is normal. There is no pericardial effusion. There is normal contrast opacification of the pulmonary arteries. There are no filling defects. The b loree thorax is intact. IMPRESSION: Normal exam. No evidence of pulmonary embolism. No evidence of bronchopneumonia.
[2020-03-29] MEDS ORDERED: PIPERACILLIN-TAZOBACTAM 3.375 GM in SODIUM CHLORIDE 0.9% 100 ML IVPB STA (22:10)
[2020-03-29] MEDS ORDERED: NALOXONE 0.4 MG/ML 1 ML VIAL IV PRN (22:10)
[2020-03-29] MEDS ORDERED: MORPHINE SULFATE 4 MG/ML SYRINGE IVP STA (22:59)
[2020-03-30] MEDS: KETOROLAC 15 MG/ML 1 ML VIAL IVP SCH ×2 (02:12→10:27)
[2020-03-30 06:12] LABS: Basophils # (A) 0.1 k/uL (0-0.2); Basophils % (A) 2 %; Eosinophils # (A) 0.3 k/uL (0-0.7); Eosinophils % (A) 5 %; HCT 29.7 % (34.0-46.0); Hypochromasia Moderate; Lymphocytes # (A) 2.9 k/uL (1.0-4.8); Lymphocytes % (A) 43 %; MCH 28.3 pg (25.0-35.0); MCHC 31.7 g/dL (31.0-37.0); MCV 89.4 fL (80.0-100.0); Mean Platelet Volume 8.1; Monocytes # (A) 0.5 k/uL (0-1.0); Monocytes % (A) 8 %; Neutrophils # (A) 2.7 k/uL (1.3-7.7); Neutrophils % (A) 39 %; Platelet Count 397 k/uL (150-450); RBC 3.33 m/uL (3.80-5.40); RDW 14.3 % (11.5-15.5); WBC 6.8 k/uL (3.8-10.6)
[2020-03-30 06:13] LABS: HGB 9.4 gm/dL (11.4-16.0)
[2020-03-30 06:44] LABS: ALT 33 U/L (4-34); AST 27 U/L (14-36); African American GFR (CKD) >90 (>60 ml/min/1.73 sqM); Albumin 3.4 g/dL (3.5-5.0); Alkaline Phosphatase 67 U/L (38-126); Anion Gap 7 mmol/L; Blood Urea Nitrogen 11 mg/dL (7-17); Calcium 8.5 mg/dL (8.4-10.2); Carbon Dioxide 22 mmol/L (22-30); Chloride 110 mmol/L (98-107); Glucose 87 mg/dL (74-99); Non-African American GFR(CKD) >90 (>60 ml/min/1.73 sqM); Sodium 139 mmol/L (137-145); Total Bilirubin 0.4 mg/dL (0.2-1.3); Total Protein 6.8 g/dL (6.3-8.2)
[2020-03-30] MEDS ORDERED: PIPERACILLIN-TAZOBACTAM 3.375 GM in SODIUM CHLORIDE 0.9% 100 ML IVPB SCH (07:00)
[2020-03-30] MEDS ORDERED: SUMAtriptan succinate 50 MG TAB PO PRN (07:37)
[2020-03-30] MEDS ORDERED: PANTOPRAZOLE 40 MG/10 ML VIAL IVP SCH (09:00)
[2020-03-30] MEDS ORDERED: LEVOTHYROXINE 75 MCG TAB PO SCH (09:00)
[2020-03-30 09:40] VITALS: TEMP 98.9
[2020-03-30] MEDS ORDERED: AMOXIC-POT CLAV 875-125MG 1 EACH TAB PO SCH (10:00)
[2020-03-30] MEDS ORDERED: sulfaSALAzine 500 MG TAB PO SCH (10:00)
[2020-03-30] MEDS ORDERED: AUTO INJCT SQ SCH (10:00)
[2020-03-30] MEDS ORDERED: ABATACEPT 125 MG/ML SQ SCH (10:00)
--- NOTE | 2020-03-30 10:53 | P.HPIM ---
History of Present Illness 35-year-old pleasant female came in with compensative shortness of breath right- sided pleuritic chest pain. Patient had a pleuritic chest pain was severe sharp 10/10 in severity denied any history of coronary artery disease in the family. Patient had a CT angios the chest which did not show any pulmonary embolism or any aortic dissection. Patient to chest pain is better patient did take Motrin at home which did not improve her chest pain. There is no pleural effusion or pneumonia on the chest x-ray or CAT scan. Patient was having occasional cough which makes her pain worse. Patient does have history of rheumatoid arthritis. Patient denied any recent flulike symptoms or viral illnesses. Patient denied any fever chills. Patient had recent a history of endometrial ablation which was compensated by septic shock was in ICU patient was discharged on fourth of this month from [facility] and patient is supposed to take Augmentin starting from fourth for about 2 weeks. Patient pain is better now around 2- 4/10 in severity. EKG did not show any acute ST-T wave changes and one set of troponin is negative patient had leukocytosis which resolved. Patient was on the Toradol for pain Review of Systems REVIEW OF SYSTEMS: CONSTITUTIONAL: No fever, no malaise, no fatigue. HEENT: No recent visual problems or hearing problems. Denied any sore throat. CARDIOVASCULAR: No orthopnea, PND, no palpitations, no syncope. PULMONARY: No shortness of breath, no cough, no hemoptysis. GASTROINTESTINAL: No diarrhea, no nausea, no vomiting, no abdominal pain. NEUROLOGICAL: No headaches, no weakness, no numbness. HEMATOLOGICAL: Denies any bleeding or petechiae. GENITOURINARY: Denies any burning micturition, frequency, or urgency. MUSCULOSKELETAL/RHEUMATOLOGICAL: Denies any joint pain, swelling, or any muscle pain. ENDOCRINE: Denies any polyuria or polydipsia. The rest of the 14-point review of systems is negative. Past Medical History Past Medical History: Rheumatoid Arthritis (RA) Additional Past Medical History / Comment(s): ENDOMETRIOSIS. PCOS. HYSTERECTOMY TUBES AND RIGHT OVARY 03/17/2020 History of Any Multi-Drug Resistant Organisms: None Reported Past Surgical History: Cholecystectomy, Hysterectomy, Tubal Ligation Additional Past Surgical History / Comment(s): Cervical conization 08/2017, uterine ablation Past Anesthesia/Blood Transfusion Reactions: No Reported Reaction Past Psychological History: Depression Smoking Status: Former smoker Past Alcohol Use History: Occasional Additional Past Alcohol Use History / Comment(s): QUIT SMOKING 2016 Past Drug Use History: None Reported - Past Family History Father Family Medical History: Hyperlipidemia, Hypertension Mother Family Medical History: Hypertension Medications and Allergies Home Medications Medication Instructions Recorded Confirmed Type Levothyroxine Sodium [Synthroid] 75 mcg PO DAILY 05/08/18 03/29/20 History Biotin 5,000 mcg PO DAILY 12/30/18 03/29/20 History Folic Acid 1 mg PO DAILY 12/30/18 03/29/20 History Lansoprazole [Prevacid] 30 mg PO DAILY 12/30/18 03/29/20 History Abatacept [Orencia Clickject] 125 mg SQ DIRECTED 03/29/20 03/29/20 History Amoxic-Pot Clav 875-125Mg 1 tab PO Q12H 03/29/20 03/29/20 History [Augmentin 875-125] Cetirizine HCl [Zyrtec] 10 mg PO DAILY 03/29/20 03/29/20 History Cholecalciferol [Vitamin D3 (25 5,000 unit PO DAILY 03/29/20 03/29/20 History Mcg = 1000 Iu)] DULoxetine HCL [Cymbalta] 30 mg PO BID 03/29/20 03/29/20 History Fluticasone/Vilanterol [Breo 1 puff INHALATION RT-DAILY 03/29/20 03/29/20 History Ellipta 100-25 Mcg Inhaler] Furosemide [Lasix] 20 mg PO BID PRN 03/29/20 03/29/20 History Krill Oil 500 mg PO DAILY 03/29/20 03/29/20 History L.acidoph,Paracasei, B.lactis 1 cap PO BID 03/29/20 03/29/20 History [Probiotic] Rizatriptan Benzoate [Maxalt] 10 mg PO BID PRN 03/29/20 03/29/20 History sulfaSALAzine [Sulfasalazine] 500 mg PO Q12H 03/29/20 03/29/20 History Famotidine [Pepcid] 20 mg PO BID #20 tablet 03/30/20 Rx Ibuprofen [Motrin] 800 mg PO Q8H #30 tab 03/30/20 Rx Allergies Allergy/AdvReac Type Severity Reaction Status Date / Time azithromycin AdvReac Severe Abdominal Verified 03/29/20 21:13 Pain Physical Exam Vitals: Vital Signs Temp Pulse Pulse Resp BP BP Pulse Ox 03/30/20 08:23 98.9 F 73 16 116/73 100 03/30/20 02:03 80 26 H 100 03/30/20 00:39 24 03/30/20 00:04 98.1 F 77 24 125/77 100 03/29/20 22:57 98.4 F 88 18 126/65 100 03/29/20 21:03 99 20 140/72 100 03/29/20 20:31 100.1 F H 03/29/20 19:54 98.6 F 106 H 18 131/79 100 Intake and Output 03/29/20 03/30/20 03/30/20 22:59 06:59 14:59 Output Total 200 300 Balance -200 -300 Output: Urine 200 300 Other: # Voids 1 Weight 74.843 kg 77 kg PHYSICAL EXAMINATION: GENERAL: The patient is alert and oriented x3, not in any acute distress. Well developed, well nourished. HEENT: Pupils are round and equally reacting to light. EOMI. No scleral icterus. No conjunctival pallor. Normocephalic, atraumatic. No pharyngeal erythema. No thyromegaly. CARDIOVASCULAR: S1 and S2 present. No murmurs, rubs, or gallops. PULMONARY: Chest is clear to auscultation, no wheezing or crackles. ABDOMEN: Soft, nontender, nondistended, normoactive bowel sounds. No palpable organomegaly. MUSCULOSKELETAL: No joint swelling or deformity. EXTREMITIES: No cyanosis, clubbing, or pedal edema. NEUROLOGICAL: Gross neurological examination did not reveal any focal deficits. SKIN: No rashes. Results CBC & Chem 7: 03/30/20 05:51 03/30/20 05:51 Labs: Abnormal Lab Results - Last 24 Hours (Table) 03/29/20 03/29/20 03/29/20 Range/Units 20:25 20:25 20:25 WBC 11.0 H (3.8-10.6) k/uL RBC (3.80-5.40) m/uL Hgb 11.3 L (11.4-16.0) gm/dL Hct (34.0-46.0) % Plt Count 577 H D (150-450) k/uL Chloride (98-107) mmol/L Glucose 112 H (74-99) mg/dL Plasma Lactic Acid Augusto 3.0 H* (0.7-2.0) mmol/L ALT 40 H (4-34) U/L Total Protein 8.9 H (6.3-8.2) g/dL Albumin (3.5-5.0) g/dL 03/30/20 03/30/20 Range/Units 05:51 05:51 WBC (3.8-10.6) k/uL RBC 3.33 L (3.80-5.40) m/uL Hgb 9.4 L D (11.4-16.0) gm/dL Hct 29.7 L (34.0-46.0) % Plt Count (150-450) k/uL Chloride 110 H (98-107) mmol/L Glucose (74-99) mg/dL Plasma Lactic Acid Augusto (0.7-2.0) mmol/L ALT (4-34) U/L Total Protein (6.3-8.2) g/dL Albumin 3.4 L (3.5-5.0) g/dL Thrombosis Risk Factor Assmnt - Choose All That Apply Any of the Below Risk Factors Present?: Yes Each Factor Represents 1 point: Obesity (BMI >25) Each Risk Factor Represents 2 Points: Laparoscopic surgery, Major surgery Thrombosis Risk Factor Assessment Total Risk Factor Score: 5 Thrombosis Risk Factor Assessment Level: High Risk Assessment and Plan Plan: -Pleuritic chest pain most probably secondary to inflammation of right-sided pleura may be autoimmune in nature. Patient is already better on Toradol patient will be discharged on Motrin for 10 days in the pulmonary will evaluate the patient. Patient will be discharged on Motrin wrong with Pepcid. -Leukocytosis reactive secondary to pleurisy -Rheumatoid arthritis -Recent discharge from the hospital after she was treated for septic shock at that time because of the fluid overload patient apparently had pleural effusions bilaterally no heart failure. She will be discharged after evaluation by pulmonary.
--- NOTE | 2020-03-30 10:53 | P.DS ---
Providers Date of admission: 03/29/20 22:10 Attending physician: Loi Gomez Consults: 03/29/20 22:11 Consult Physician Urgent Consulting Provider: Maeve Baltazar Consult Reason/Comments: dyspnea Do you want consulting provider notified?: Yes Primary care physician: [facility] Hospital Course: As mentioned in HPI Plan - Discharge Summary Discharge Rx Participant: Yes New Discharge Prescriptions: New Ibuprofen [Motrin] 800 mg PO Q8H #30 tab Famotidine [Pepcid] 20 mg PO BID #20 tablet No Action Levothyroxine Sodium [Synthroid] 75 mcg PO DAILY Lansoprazole [Prevacid] 30 mg PO DAILY Folic Acid 1 mg PO DAILY Biotin 5,000 mcg PO DAILY Rizatriptan Benzoate [Maxalt] 10 mg PO BID PRN PRN Reason: Migraine Headache L.acidoph,Paracasei, B.lactis [Probiotic] 1 cap PO BID Furosemide [Lasix] 20 mg PO BID PRN PRN Reason: Shortness Of Breath Cholecalciferol [Vitamin D3 (25 Mcg = 1000 Iu)] 5,000 unit PO DAILY Cetirizine HCl [Zyrtec] 10 mg PO DAILY Krill Oil 500 mg PO DAILY Abatacept [Orencia Clickject] 125 mg SQ DIRECTED Fluticasone/Vilanterol [Breo Ellipta 100-25 Mcg Inhaler] 1 puff INHALATION RT-DAILY DULoxetine HCL [Cymbalta] 30 mg PO BID Amoxic-Pot Clav 875-125Mg [Augmentin 875-125] 1 tab PO Q12H sulfaSALAzine [Sulfasalazine] 500 mg PO Q12H Discharge Medication List Levothyroxine Sodium [Synthroid] 75 mcg PO DAILY 05/08/18 [History] Biotin 5,000 mcg PO DAILY 12/30/18 [History] Folic Acid 1 mg PO DAILY 12/30/18 [History] Lansoprazole [Prevacid] 30 mg PO DAILY 12/30/18 [History] Abatacept [Orencia Clickject] 125 mg SQ DIRECTED 03/29/20 [History] Amoxic-Pot Clav 875-125Mg [Augmentin 875-125] 1 tab PO Q12H 03/29/20 [History] Cetirizine HCl [Zyrtec] 10 mg PO DAILY 03/29/20 [History] Cholecalciferol [Vitamin D3 (25 Mcg = 1000 Iu)] 5,000 unit PO DAILY 03/29/20 [History] DULoxetine HCL [Cymbalta] 30 mg PO BID 03/29/20 [History] Fluticasone/Vilanterol [Breo Ellipta 100-25 Mcg Inhaler] 1 puff INHALATION RT- DAILY 03/29/20 [History] Furosemide [Lasix] 20 mg PO BID PRN 03/29/20 [History] Krill Oil 500 mg PO DAILY 03/29/20 [History] L.acidoph,Paracasei, B.lactis [Probiotic] 1 cap PO BID 03/29/20 [History] Rizatriptan Benzoate [Maxalt] 10 mg PO BID PRN 03/29/20 [History] sulfaSALAzine [Sulfasalazine] 500 mg PO Q12H 03/29/20 [History] Famotidine [Pepcid] 20 mg PO BID #20 tablet 03/30/20 [Rx] Ibuprofen [Motrin] 800 mg PO Q8H #30 tab 03/30/20 [Rx] Follow up Appointment(s)/Referral(s): [facility],Clinic [Primary Care Provider] - 3 Days Discharge Disposition: HOME SELF-CARE
[2020-03-30 15:04] VITALS: BP 123/72; PULSE 90; RESP 14
[2020-03-30] MEDS ORDERED: DULoxetine HCL 30 MG CAPSULE.DR PO SCH (21:00)
[2020-03-31] MEDS ORDERED: SYMBICORT 80-4.5 MCG INHALER INHALATION SCH (08:00)
[2020-03-31] MEDS ORDERED: PANTOPRAZOLE 40 MG TABLET PO SCH (09:00)
[2020-03-31] MEDS ORDERED: NON FORMULARY DRUG (Lansoprazole [Prevacid] 30 MG Capsule.Dr) PO SCH (09:00)
== END 2020-03-30 15:45 | disposition home or self-care (01) ==
LOC: EC 19:51 → 6PED 22:10
PROVIDERS: ADMIT Internal Medicine; ATTEND Internal Medicine
DX: R07.81 Pleurodynia (principal); R09.1 Pleurisy; M06.9 Rheumatoid arthritis, unspecified; E28.2 Polycystic ovarian syndrome; F32.9 Major depressive disorder, single episode, unspecified; E66.9 Obesity, unspecified; Z68.26 Body mass index [BMI] 26.0-26.9, adult; Z20.828 Contact with and (suspected) exposure to other viral communicable diseases; Z79.890 Hormone replacement therapy; Z79.51 Long term (current) use of inhaled steroids; Z79.899 Other long term (current) drug therapy; Z88.1 Allergy status to other antibiotic agents; Z86.19 Personal history of other infectious and parasitic diseases; Z87.09 Personal history of other diseases of the respiratory system; Z87.42 Personal history of other diseases of the female genital tract; Z90.49 Acquired absence of other specified parts of digestive tract; Z90.710 Acquired absence of both cervix and uterus; Z87.891 Personal history of nicotine dependence; Z82.49 Family history of ischemic heart disease and other diseases of the circulatory system; Z83.49 Family history of other endocrine, nutritional and metabolic diseases
CPT/HCPCS: 96366 ×2; 96375 ×2; 96361; 96365; 99285; 36415; 93005; 83880; 80053 ×2; 83605; 84484; 85025 ×2; 85610; 85730; 87040; 87635; 71045; 71275; G0378 ×2; J2543 ×2; J2270; J1885; C9113; Q9967

== ENCOUNTER 2021-11-02 06:13 | Emergency (ER) | payer BC ==
[2021-11-02 06:19] VITALS: BP 139/74; PULSE 83; RESP 19; TEMP 98.6
[2021-11-02] MEDS ORDERED: HYDROmorphone 1 MG/ML 1 ML SYRINGE IM STA (06:26)
--- NOTE | 2021-11-02 06:49 | XR ---
EXAMINATION TYPE: XR foot complete LT DATE OF EXAM: 11/02/2021 CLINICAL HISTORY: Pain after recent volleyball injury TECHNIQUE: Frontal, lateral, and oblique images of the left foot are obtained. COMPARISON: None FINDINGS: There is no acute fracture/dislocation evident in the left foot. The joint spaces in the left foot appear within normal limits. The overlying soft tissue appears unremarkable. IMPRESSION: There is no acute fracture or dislocation in the left foot.
--- NOTE | 2021-11-02 06:50 | ED ---
Lower Extremity Injury HPI - General Chief Complaint: Extremity Injury, Lower Stated Complaint: LT foot pain Time Seen by Provider: 11/02/21 06:21 Source: patient, RN notes reviewed Mode of arrival: wheelchair Limitations: no limitations - History of Present Illness Initial Comments: This is a 36-year-old female presents emergency Department with chief complaint of left foot pain. Patient states that she did trip (volleyball last night states that she had moderate discomfort persisted multiple ectopies after she stepped on the pain started worsening. She states she's been excruciating pain throughout the night. The swelling of her left foot denies any ankle pain. Patient does have underlying rheumatoid arthritis. Patient states she cannot we ight-bear states it does increase her pain though she does have pain at rest. - Related Data Home Medications Medication Instructions Recorded Confirmed Levothyroxine Sodium [Synthroid] 75 mcg PO DAILY 05/08/18 03/29/20 Biotin [Biotin Disolve] 5,000 mcg PO DAILY 12/30/18 03/29/20 Folic Acid 1 mg PO DAILY 12/30/18 03/29/20 Lansoprazole [Prevacid] 30 mg PO DAILY 12/30/18 03/29/20 Abatacept [Orencia Clickject] 125 mg SQ DIRECTED 03/29/20 03/29/20 Amoxic-Pot Clav 875-125Mg 1 tab PO Q12H 03/29/20 03/29/20 [Augmentin 875-125] Cetirizine HCl [Zyrtec] 10 mg PO DAILY 03/29/20 03/29/20 Cholecalciferol [Vitamin D3 (25 5,000 unit PO DAILY 03/29/20 03/29/20 Mcg = 1000 Iu)] DULoxetine HCL [Cymbalta] 30 mg PO BID 03/29/20 03/29/20 Fluticasone/Vilanterol [Breo 1 puff INHALATION RT-DAILY 03/29/20 03/29/20 Ellipta 100-25 Mcg Inhaler] Furosemide [Lasix] 20 mg PO BID PRN 03/29/20 03/29/20 Krill Oil 500 mg PO DAILY 03/29/20 03/29/20 L.acidoph,Paracasei, B.lactis 1 cap PO BID 03/29/20 03/29/20 [Probiotic] Rizatriptan Benzoate [Maxalt] 10 mg PO BID PRN 03/29/20 03/29/20 sulfaSALAzine [Sulfasalazine] 500 mg PO Q12H 03/29/20 03/29/20 Previous Rx's Medication Instructions Recorded Famotidine [Pepcid] 20 mg PO BID #20 tablet 03/30/20 Ibuprofen [Motrin] 800 mg PO Q8H #30 tab 03/30/20 Ibuprofen [Motrin] 600 mg PO Q8HR PRN #20 tab 11/02/21 Allergies Allergy/AdvReac Type Severity Reaction Status Date / Time meropenem Allergy Itching Verified 11/02/21 06:19 azithromycin AdvReac Severe Abdominal Verified 03/29/20 21:13 Pain Review of Systems ROS Statement: Those systems with pertinent positive or pertinent negative responses have been documented in the HPI. ROS Other: All systems not noted in ROS Statement are negative. Past Medical History Past Medical History: Rheumatoid Arthritis (RA) Additional Past Medical History / Comment(s): ENDOMETRIOSIS. PCOS. HYSTERECTOMY TUBES AND RIGHT OVARY 03/17/2020 History of Any Multi-Drug Resistant Organisms: None Reported Past Surgical History: Cholecystectomy, Hysterectomy, Tubal Ligation Additional Past Surgical History / Comment(s): Cervical conization 08/2017, uterine ablation Past Anesthesia/Blood Transfusion Reactions: No Reported Reaction Past Psychological History: Depression Smoking Status: Former smoker Past Alcohol Use History: Occasional Past Drug Use History: None Reported - Past Family History Father Family Medical History: Hyperlipidemia, Hypertension Mother Family Medical History: Hypertension General Exam Limitations: no limitations General appearance: alert, in no apparent distress Head exam: Present: atraumatic, normocephalic, normal inspection Respiratory exam: Present: normal lung sounds bilaterally. Absent: respiratory distress, wheezes, rales, rhonchi, stridor Cardiovascular Exam: Present: regular rate, normal rhythm, normal heart sounds. Absent: systolic murmur, diastolic murmur, rubs, gallop, clicks Extremities exam: Present: other (Left foot there is swelling noted just distal of the ankle, severe times palpation, no erythema no increase in warmth pulses are palpable Refill less than 2 seconds) Course Vital Signs 11/02/21 06:16 Temperature 98.6 F Pulse Rate 83 Respiratory 19 Rate Blood Pressure 139/74 O2 Sat by Pulse 98 Oximetry Medical Decision Making - Medical Decision Making X-rays negative for acute fracture. Patient has a left foot sprain. Patient will be given crutches, advised to follow-up with orthopedics. Return parameters were discussed. Disposition Clinical Impression: Sprain of left foot Disposition: HOME SELF-CARE Condition: Stable Instructions (If sedation given, give patient instructions): Foot Sprain (ED) Additional Instructions: Please return to the Emergency Department if symptoms worsen or any other concerns. Prescriptions: Ibuprofen [Motrin] 600 mg PO Q8HR PRN #20 tab PRN Reason: Pain Is patient prescribed a controlled substance at d/c from ED?: No Referrals: Roger Zayas DO [Primary Care Provider] - 1-2 days Siddharth Combs MD [STAFF PHYSICIAN] - 1-2 days Time of Disposition: 07:09
[2021-11-02] MEDS ORDERED: ACET/COD 300 MG/30 MG STARTER PACK 6 TAB BTL PO STA (07:12)
== END 2021-11-02 07:38 | disposition home or self-care (01) ==
LOC: EC 06:13
DX: S93.602A Unspecified sprain of left foot, initial encounter (principal); F32.A Depression, unspecified; Z87.891 Personal history of nicotine dependence; Z88.1 Allergy status to other antibiotic agents; W22.8XXA Striking against or struck by other objects, initial encounter; Y93.68 Activity, volleyball (beach) (court)
CPT/HCPCS: 73630; 99283; 96372; J1170

== ENCOUNTER 2022-05-03 19:24 | Observation (INO) | payer BC ==
[2022-05-03] MEDS ORDERED: SODIUM CHLORIDE 0.9% 1,000 ML IV STA (19:54)
[2022-05-03] MEDS ORDERED: ONDANSETRON 4 MG/2 ML VIAL IVP STA (19:54)
[2022-05-03] MEDS ORDERED: LEVOFLOXACIN 500MG-D5W PMX 500 MG in DEXTROSE/WATER 1 100ML.BAG IVPB STA (20:00)
[2022-05-03] MEDS ORDERED: metroNIDAZOLE-NS PMX 500 MG in SALINE 1 100ML.BAG IVPB STA (20:00)
[2022-05-03] MEDS ORDERED: LEVOFLOXACIN 750MG-D5W PMX 750 MG in DEXTROSE/WATER 1 150ML.BAG IVPB STA (20:01)
[2022-05-03] MEDS ORDERED: HYDROmorphone 0.5 MG/0.5 ML SYRINGE IVP STA (20:05)
[2022-05-03 20:06] LABS: Basophils # (A) 0.1 k/uL (0-0.2); Basophils % (A) 1 %; Eosinophils # (A) 0.2 k/uL (0-0.7); Eosinophils % (A) 2 %; HCT 39.2 % (34.0-46.0); HGB 13.2 gm/dL (11.4-16.0); Lymphocytes # (A) 2.7 k/uL (1.0-4.8); Lymphocytes % (A) 31 %; MCH 30.4 pg (25.0-35.0); MCHC 33.6 g/dL (31.0-37.0); MCV 90.4 fL (80.0-100.0); Mean Platelet Volume 8.3; Monocytes # (A) 0.4 k/uL (0-1.0); Monocytes % (A) 4 %; Neutrophils # (A) 5.2 k/uL (1.3-7.7); Neutrophils % (A) 60 %; Platelet Count 285 k/uL (150-450); RBC 4.33 m/uL (3.80-5.40); RDW 12.7 % (11.5-15.5); WBC 8.7 k/uL (3.8-10.6)
[2022-05-03 20:22] LABS: ALT 25 U/L (4-34); AST 26 U/L (14-36); African American GFR (CKD) >90 (>60 ml/min/1.73 sqM); Albumin 4.6 g/dL (3.5-5.0); Alkaline Phosphatase 61 U/L (38-126); Anion Gap 9 mmol/L; Blood Urea Nitrogen 8 mg/dL (7-17); Calcium 9.1 mg/dL (8.4-10.2); Carbon Dioxide 27 mmol/L (22-30); Chloride 101 mmol/L (98-107); Glucose 88 mg/dL (74-99); Lipase 84 U/L (23-300); Non-African American GFR(CKD) >90 (>60 ml/min/1.73 sqM); Potassium 3.7 mmol/L (3.5-5.1); Sodium 137 mmol/L (137-145); Total Bilirubin 0.5 mg/dL (0.2-1.3); Total Protein 8.5 g/dL (6.3-8.2)
--- NOTE | 2022-05-03 20:52 | ED ---
Abdominal Pain HPI - General Chief Complaint: Abdominal Pain Stated Complaint: appendicitis Time Seen by Provider: 05/03/22 19:53 Source: patient Mode of arrival: wheelchair - History of Present Illness Initial Comments: Patient is a 37 year old female who presents for appendicitis concern. On Sunday patient started to experience right lower quadrant abdominal pain and nausea. Her primary care provider scheduled her for an outpatient CT today. She was told to go to the emergency room for appendicitis. She denies fever, chills, vomiting. Normal bowel movement today. - Related Data Home Medications Medication Instructions Recorded Confirmed Biotin [Biotin Disolve] 5,000 mcg PO DAILY 12/30/18 05/03/22 Cetirizine HCl [Zyrtec] 10 mg PO DAILY 03/29/20 05/03/22 Fluticasone/Vilanterol [Breo 1 puff INHALATION RT-DAILY 03/29/20 05/03/22 Ellipta 100-25 Mcg Inhaler] sulfaSALAzine [Sulfasalazine] 1,000 mg PO BID 03/29/20 05/03/22 Albuterol Sulfate [Albuterol 2 puff PO RT-Q6H PRN 05/03/22 05/03/22 Sulfate Hfa] Citalopram Hydrobromide [CeleXA] 10 mg PO HS 05/03/22 05/03/22 Clindamycin Phosphate [Cleocin T 1 applic TOPICAL DAILY 05/03/22 05/03/22 1%] Doxycycline Hyclate 100 mg PO BID 05/03/22 05/03/22 Famotidine [Pepcid] 20 mg PO HS 05/03/22 05/03/22 Flibanserin [Addyi] 100 mg PO DAILY 05/03/22 05/03/22 Hydroxychloroquine Sulfate 200 mg PO BID 05/03/22 05/03/22 [Plaquenil] Levothyroxine Sodium [Synthroid] 112 mcg PO DAILY 05/03/22 05/03/22 Linaclotide [Linzess] 290 mcg PO DAILY 05/03/22 05/03/22 Omeprazole [PriLOSEC] 40 mg PO DAILY 05/03/22 05/03/22 Spironolactone [Aldactone] 50 mg PO BID 05/03/22 05/03/22 buPROPion XL [Wellbutrin XL] 150 mg PO DAILY 05/03/22 05/03/22 Allergies Allergy/AdvReac Type Severity Reaction Status Date / Time meropenem Allergy Itching Verified 05/03/22 19:44 azithromycin AdvReac Severe Abdominal Verified 05/03/22 19:44 Pain Review of Systems ROS Statement: Those systems with pertinent positive or pertinent negative responses have been documented in the HPI. ROS Other: All systems not noted in ROS Statement are negative. Past Medical History Past Medical History: Rheumatoid Arthritis (RA) Additional Past Medical History / Comment(s): ENDOMETRIOSIS. PCOS. HYSTERECTOMY TUBES AND RIGHT OVARY 03/17/2020 History of Any Multi-Drug Resistant Organisms: None Reported Past Surgical History: Cholecystectomy, Hysterectomy, Tubal Ligation Additional Past Surgical History / Comment(s): Cervical conization 08/2017, uterine ablation Past Anesthesia/Blood Transfusion Reactions: No Reported Reaction Past Psychological History: Depression Smoking Status: Former smoker Past Alcohol Use History: Occasional Past Drug Use History: None Reported - Past Family History Father Family Medical History: Hyperlipidemia, Hypertension Mother Family Medical History: Hypertension General Exam General appearance: alert, in no apparent distress Head exam: Present: atraumatic, normocephalic, normal inspection Eye exam: Present: normal appearance, PERRL, EOMI. Absent: scleral icterus, conjunctival injection, periorbital swelling Respiratory exam: Present: normal lung sounds bilaterally. Absent: respiratory distress, wheezes, rales, rhonchi, stridor Cardiovascular Exam: Present: regular rate, normal rhythm, normal heart sounds. Absent: systolic murmur, diastolic murmur, rubs, gallop, clicks GI/Abdominal exam: Present: soft, tenderness (RLQ, mild), normal bowel sounds. Absent: distended, guarding, rebound, rigid Neurological exam: Present: alert, oriented X3, CN II-XII intact Psychiatric exam: Present: normal affect, normal mood Skin exam: Present: warm, dry, intact, normal color. Absent: rash Course Vital Signs 05/03/22 19:41 Temperature 98.1 F Pulse Rate 67 Respiratory 16 Rate Blood Pressure 130/84 O2 Sat by Pulse 99 Oximetry Medical Decision Making - Medical Decision Making Was pt. sent in by a medical professional or institution (, PA, ELECTION JUDGE, urgent care, hospital, or shelter...) When possible be specific @ -[No] Did you speak to anyone other than the patient for history (EMS, parent, family, police, friend...)? What history was obtained from this source @ -[No] Did you review nursing and triage notes (agree or disagree)? Why? @ -[I reviewed and agree with nursing and triage notes] Were old charts reviewed (outside hosp., previous admission, EMS record, old EKG, old radiological studies, urgent care reports/EKG's, shelter records)? Report findings @ -Yes, CT of the abdomen and pelvis reviewed which shows acute appendicitis. Differential Diagnosis (chest pain, altered mental status, abdominal pain women, abdominal pain men, vaginal bleeding, weakness, fever, dyspnea, syncope, headache, dizziness, GI bleed, back pain, seizure, CVA, palpatations, mental health)? @ -[not applicable] EKG interpreted by me (3pts min.). @ -[As above] X-rays interpreted by me (1pt min.). @ -[None done] CT interpreted by me (1pt min.). @ -[None done] U/S interpreted by me (1pt. min.). @ -[None done] What testing was considered but not performed or refused? (CT, X-rays, U/S, labs)? Why? @ -[None] What meds were considered but not given or refused? Why? @ -[None] Did you discuss the management of the patient with other professionals (professionals i.e. , PA, ELECTION JUDGE, lab, RT, psych nurse, psychologist social, livestock auctioneer, teacher, principal gifts officer, case checker)? Give summary @ -[No] Was smoking cessation discussed for >3mins.? @ -[No] Was critical care preformed (if so, how long)? @ -[No] Were there social determinants of health that impacted care today? How? (Homelessness, low income, unemployed, alcoholism, drug addiction, transportation, low edu. Level, literacy, decrease access to med. care, prison, rehab)? @ -[No] Was there de-escalation of care discussed even if they declined (Discuss DNR or withdrawal of care, Hospice)? DNR status @ -[No] What co-morbidities impacted this encounter? (DM, HTN, Smoking, COPD, CAD, Cancer, CVA, ARF, Chemo, Hep., AIDS, mental health diagnosis, sleep apnea, morbid obesity)? @ -[None] Was patient admitted / discharged? Hospital course, mention meds given and route, prescriptions, significant lab abnormalities, going to OR and other pertinent info. @ -This is a 37-year-old female presenting for appendicitis. Patient well- appearing, afebrile. Mild right lower quadrant tenderness without rigidity or guarding. No leukocytosis. I did review CT of the abdomen and pelvis which was acute appendicitis. Patient to be admitted to Dr. Saez. Abx initiated. Patient NPO. Pain controlled. Undiagnosed new problem with uncertain prognosis? @ -[No] Drug Therapy requiring intensive monitoring for toxicity (Heparin, Nitro, Insulin, Cardizem)? @ -[No] Were any procedures done? @ -[No] Diagnosis/symptom? @ -Appendicitis Acute, or Chronic, or Acute on Chronic? @ -Acute Uncomplicated (without systemic symptoms) or Complicated (systemic symptoms)? @ -uncomplicated Side effects of treatment? @ -[No] Exacerbation, Progression, or Severe Exacerbation? @ -[No] Poses a threat to life or bodily function? How? (Chest pain, USA, SD, pneumonia, PE, COPD, DKA, ARF, appy, cholecystitis, CVA, Diverticulitis, Homicidal, Suicidal, threat to staff... and all critical care pts) @ -[No] Dr. Hand is my attending. - Lab Data Result diagrams: 05/03/22 19:59 05/03/22 19:59 Lab Results 05/03/22 05/03/22 05/03/22 Range/Units 19:59 19:59 19:59 WBC 8.7 (3.8-10.6) k/uL RBC 4.33 (3.80-5.40) m/uL Hgb 13.2 (11.4-16.0) gm/dL Hct 39.2 (34.0-46.0) % MCV 90.4 (80.0-100.0) fL MCH 30.4 (25.0-35.0) pg MCHC 33.6 (31.0-37.0) g/dL RDW 12.7 (11.5-15.5) % Plt Count 285 (150-450) k/uL MPV 8.3 Neutrophils % 60 % Lymphocytes % 31 % Monocytes % 4 % Eosinophils % 2 % Basophils % 1 % Neutrophils # 5.2 (1.3-7.7) k/uL Lymphocytes # 2.7 (1.0-4.8) k/uL Monocytes # 0.4 (0-1.0) k/uL Eosinophils # 0.2 (0-0.7) k/uL Basophils # 0.1 (0-0.2) k/uL Sodium 137 (137-145) mmol/L Potassium 3.7 (3.5-5.1) mmol/L Chloride 101 (98-107) mmol/L Carbon Dioxide 27 (22-30) mmol/L Anion Gap 9 mmol/L BUN 8 (7-17) mg/dL Creatinine 0.78 (0.52-1.04) mg/dL Est GFR (CKD-EPI)AfAm >90 (>60 ml/min/1.73 sqM) Est GFR (CKD-EPI)NonAf >90 (>60 ml/min/1.73 sqM) Glucose 88 (74-99) mg/dL Plasma Lactic Acid Augusto 0.7 (0.7-2.0) mmol/L Calcium 9.1 (8.4-10.2) mg/dL Total Bilirubin 0.5 (0.2-1.3) mg/dL AST 26 (14-36) U/L ALT 25 (4-34) U/L Alkaline Phosphatase 61 (38-126) U/L Total Protein 8.5 H (6.3-8.2) g/dL Albumin 4.6 (3.5-5.0) g/dL Lipase 84 (23-300) U/L Disposition Clinical Impression: Appendicitis Disposition: ADMITTED IP TO THIS [facility] Condition: Stable Referrals: Roger Zayas DO [Primary Care Provider] - 1-2 days
[2022-05-03] MEDS ORDERED: HYDROmorphone 0.5 MG/0.5 ML SYRINGE IVP PRN (20:53)
[2022-05-03] MEDS ORDERED: NALOXONE 0.4 MG/ML 1 ML VIAL IV PRN (20:53)
[2022-05-03] MEDS ORDERED: PROCHLORPERAZINE INJ 10 MG/2 ML VIAL IVP PRN (20:56)
[2022-05-03] MEDS ORDERED: FUROSEMIDE 20 MG TAB PO PRN (20:56)
[2022-05-03] MEDS ORDERED: DULoxetine HCL 30 MG CAPSULE.DR PO SCH (21:00)
[2022-05-03] MEDS ORDERED: ABATACEPT 125 MG/ML SQ SCH (21:00)
[2022-05-03] MEDS ORDERED: ESCITALOPRAM 10 MG TAB PO SCH (21:00)
[2022-05-03] MEDS ORDERED: AUTO INJCT SQ SCH (21:00)
[2022-05-03] MEDS: SPIRONOLACTONE 25 MG TAB PO SCH (22:33)
[2022-05-03] MEDS: HYDROXYCHLOROQUINE SULFATE 200 MG TAB PO SCH (22:33)
[2022-05-03] MEDS: SUMAtriptan succinate 50 MG TAB PO PRN ×2 (22:33→22:37)
[2022-05-03] MEDS: FAMOTIDINE 20 MG TAB PO SCH (22:33)
[2022-05-03] MEDS: SODIUM CHLORIDE 0.9% 1,000 ML IV SCH (22:36)
[2022-05-03 22:40] LABS: Appearance,Urine Clear (Clear); Bilirubin,Urine Negative (Negative); Blood,Urine Negative (Negative); Color,Urine Yellow; Glucose,Urine (UA) Negative (Negative); Ketones,Urine Negative (Negative); Leukocyte Esterase,Urine Negative (Negative); Nitrite,Urine Negative (Negative); Protein,Urine Negative (Negative); Urobilinogen,Urine <2.0 mg/dL (<2.0)
[2022-05-03] MEDS: sulfaSALAzine 500 MG TAB PO SCH (22:40)
[2022-05-03 22:42] LABS: Specific Gravity,Urine 1.049 (1.001-1.035)
[2022-05-03] MEDS: LACTOBACILLUS ACIDOPH & BULGAR 1 EACH PACKET PO SCH (23:16)
[2022-05-04] MEDS: SODIUM CHLORIDE 0.9% 1,000 ML IV SCH ×2 (05:38→12:43)
[2022-05-04] MEDS ORDERED: SYMBICORT 80-4.5 MCG INHALER INHALATION SCH (08:00)
[2022-05-04] MEDS: LORATADINE 10 MG TAB PO SCH (08:33)
[2022-05-04] MEDS: LACTOBACILLUS ACIDOPH & BULGAR 1 EACH PACKET PO SCH ×2 (08:33→21:16)
[2022-05-04] MEDS: SPIRONOLACTONE 25 MG TAB PO SCH ×2 (08:33→21:16)
[2022-05-04] MEDS: CHOLECALCIFEROL 125 MCG (5000 IU) TABLET PO SCH (08:33)
[2022-05-04] MEDS: FAMOTIDINE 20 MG TAB PO SCH ×2 (08:33→21:16)
[2022-05-04] MEDS: FOLIC ACID 1 MG TAB PO SCH (08:33)
[2022-05-04] MEDS: sulfaSALAzine 500 MG TAB PO SCH ×2 (08:33→21:16)
[2022-05-04] MEDS: PANTOPRAZOLE 40 MG TABLET PO SCH (08:33)
[2022-05-04] MEDS ORDERED: LEVOTHYROXINE 75 MCG TAB PO SCH (09:00)
[2022-05-04] MEDS ORDERED: NON FORMULARY DRUG (Biotin [Biotin Disolve] 5,000 MCG Tab.Rapdis) PO SCH (09:00)
[2022-05-04] MEDS ORDERED: NON FORMULARY DRUG (Krill Oil [Krill Oil] 500 MG Capsule) PO SCH (09:00)
[2022-05-04] MEDS: HYDROXYCHLOROQUINE SULFATE 200 MG TAB PO SCH ×3 (09:57→21:16)
[2022-05-04] MEDS ORDERED: ACETAMINOPHEN TAB 325 MG TAB PO PRN (10:02)
[2022-05-04] MEDS ORDERED: IPRATROPIUM-ALBUTEROL 3 ML NEB INHALATION PRN (10:28)
[2022-05-04] MEDS: PIPERACILLIN-TAZOBACTAM 3.375 GM in SODIUM CHLORIDE 0.9% 100 ML IVPB SCH ×2 (11:15→18:34)
--- NOTE | 2022-05-04 11:31 | P.CONS ---
History of Present Illness - Reason for Consult Consult date: 05/04/22 Requesting physician: Eligio Saez - History of Present Illness History of Presenting Illness: Patient is a very pleasant 37-year-old female with a past medical history of rhe umatoid arthritis, asthma, hypothyroidism, depression and endometriosis status post hysterectomy. She is currently admitted under Gen. surgery team for acute appendicitis. We have been consulted for medical management throughout patient's hospitalization. Patient presented to the emergency department on 05/03/22 as directed by her physician after obtaining an outpatient CT concerning for acute appendicitis. Patient reports on 05/01/22 she began developing right lower quadrant and umbilical pain and overall feeling as though something was wrong so she went to her PCP for evaluation and was sent for an outpatient CT. CT reported evidence of acute appendicitis with interval thickening of the appendix measuring up to 12 mm. Patient then directed to the emergency department. In the emergency department patient underwent full evaluation. CBC, CMP, and urinalysis completed and upon review all were unremarkable and negative for acute abnormalities. Patient denied having any fevers, chills, headache, lightheadedness, dizziness, nausea, vomiting, or any urinary complaints. Review of systems: Pertinent positives and negatives as discussed in HPI, a complete review of systems was performed and all other systems are negative. Physical exam: Vital signs reviewed and stable. General: Nontoxic, no distress and appears stated age. Derm: Skin warm and dry, normal coloration for ethnicity. Head: Atraumatic, normocephalic and symmetric. Eyes: EOMs intact, no lid lag, and anicteric sclera Mouth: no lip lesions, mucus membranes moist Cardiovascular: regular rate and rhythm with normal S1S2, no murmur, positive posterior tibial pulses bilaterally, and cap refill < 2 seconds. Lungs: Respirations even, regular, and unlabored on room air. Lungs CTA bilaterally, no rhonchi, no rales, no wheezing, and no accessory muscle usage. Abdominal: soft, tenderness to palpation right lower quadrant and umbilical region, no appreciable organomegaly and no rigidity Ext: ROM intact. No gross muscle atrophy, no edema, no contractures Neuro: Speech clear, face symmetrical and CN II-XII grossly intact with no noted focal neuro deficits Psych: Alert and oriented to person, place, time, and situation. Appropriate and pleasant affect. Assessment and Plan of Care: Acute appendicitis -Management per primary admitting general surgery team including DVT prophylaxis, pain management, and postsurgical wound/dressing care. -Patient is scheduled for laparoscopic appendectomy later today. -Patient received Levaquin and Flagyl the emergency department and has since been started on Zosyn by general surgery team. -Patient currently on DVT prophylaxis with Lovenox Rheumatoid arthritis -Resume DMARD's hydroxychloroquine and sulfasalazine. -Symptomatic care and pain management. Depression and anxiety -Continue daily medication regimen with Celexa and Wellbutrin. Hypothyroidism -Continue daily medication regimen with levothyroxine. Thank you for allowing us to participate in the care of this pleasant patient. Do not hesitate to contact us with questions. Someone can be reached from the [facility] hospitalist group all hours of the day at [phone] or via [employer]. I reviewed the documentation as provided by the DANI above, who is the original author of this note. I agree with the documented assessment and plan, with the following changes: none Past Medical History Past Medical History: Rheumatoid Arthritis (RA) Additional Past Medical History / Comment(s): ENDOMETRIOSIS. PCOS. HYSTERECTOMY TUBES AND RIGHT OVARY 03/17/2020 History of Any Multi-Drug Resistant Organisms: None Reported Past Surgical History: Cholecystectomy, Hysterectomy, Tubal Ligation Additional Past Surgical History / Comment(s): Cervical conization 08/2017, uterine ablation Past Anesthesia/Blood Transfusion Reactions: No Reported Reaction Past Psychological History: Depression Smoking Status: Former smoker Past Alcohol Use History: Occasional Additional Past Alcohol Use History / Comment(s): QUIT SMOKING 2016 Past Drug Use History: None Reported - Past Family History Father Family Medical History: Hyperlipidemia, Hypertension Mother Family Medical History: Hypertension Medications and Allergies Home Medications Medication Instructions Recorded Confirmed Type Biotin [Biotin Disolve] 5,000 mcg PO DAILY 12/30/18 05/03/22 History Cetirizine HCl [Zyrtec] 10 mg PO DAILY 03/29/20 05/03/22 History Fluticasone/Vilanterol [Breo 1 puff INHALATION RT-DAILY 03/29/20 05/03/22 History Ellipta 100-25 Mcg Inhaler] sulfaSALAzine [Sulfasalazine] 1,000 mg PO BID 03/29/20 05/03/22 History Albuterol Sulfate [Albuterol 2 puff PO RT-Q6H PRN 05/03/22 05/03/22 History Sulfate Hfa] Citalopram Hydrobromide [CeleXA] 10 mg PO HS 05/03/22 05/03/22 History Clindamycin Phosphate [Cleocin T 1 applic TOPICAL DAILY 05/03/22 05/03/22 History 1%] Doxycycline Hyclate 100 mg PO BID 05/03/22 05/03/22 History Famotidine [Pepcid] 20 mg PO HS 05/03/22 05/03/22 History Flibanserin [Addyi] 100 mg PO DAILY 05/03/22 05/03/22 History Hydroxychloroquine Sulfate 200 mg PO BID 05/03/22 05/03/22 History [Plaquenil] Levothyroxine Sodium [Synthroid] 112 mcg PO DAILY 05/03/22 05/03/22 History Linaclotide [Linzess] 290 mcg PO DAILY 05/03/22 05/03/22 History Omeprazole [PriLOSEC] 40 mg PO DAILY 05/03/22 05/03/22 History Spironolactone [Aldactone] 50 mg PO BID 05/03/22 05/03/22 History buPROPion XL [Wellbutrin XL] 150 mg PO DAILY 05/03/22 05/03/22 History Acetaminophen Tab [Tylenol Tab] 650 mg PO Q4H PRN #30 tablet 05/05/22 Rx Amoxic-Pot Clav 875-125Mg 1 tab PO Q12HR 10 Days #20 tab 05/05/22 Rx [Augmentin 875-125] Ibuprofen [Motrin] 600 mg PO Q8HR PRN #30 tab 05/05/22 Rx oxyCODONE HCL [OxyIR] 5 mg PO Q6H PRN 3 Days #12 tab 05/05/22 Rx Allergies Allergy/AdvReac Type Severity Reaction Status Date / Time meropenem Allergy Itching Verified 05/03/22 19:44 azithromycin AdvReac Severe Abdominal Verified 05/03/22 19:44 Pain Physical Exam Osteopathic Statement: *. No significant issues noted on an osteopathic structural exam other than those noted in the History and Physical/Consult. Vitals: Vital Signs Temp Pulse Pulse Resp BP BP Pulse Ox 05/04/22 07:40 98.5 F 74 17 112/75 97 05/04/22 02:00 97.9 F 67 19 112/71 98 05/03/22 23:00 67 19 05/03/22 22:28 97.9 F 72 18 106/69 100 05/03/22 21:58 97.0 F L 68 18 120/64 98 05/03/22 19:41 98.1 F 67 16 130/84 99 Intake and Output 05/03/22 05/04/22 05/04/22 22:59 06:59 14:59 Intake Total 0 Balance 0 Intake: Oral 0 Other: # Voids 2 Weight 86.183 kg Results CBC & Chem 7: 05/03/22 19:59 05/03/22 19:59 Labs: Abnormal Lab Results - Last 24 Hours (Table) 05/03/22 05/03/22 Range/Units 19:59 22:17 Total Protein 8.5 H (6.3-8.2) g/dL Ur Specific [place] 1.049 H (1.001-1.035)
[2022-05-04] MEDS ORDERED: IV FLUID CONTINUATION 300 ML IV ONE (12:14)
[2022-05-04] MEDS ORDERED: ONDANSETRON 4 MG/2 ML VIAL ONE (12:16)
--- NOTE | 2022-05-04 12:45 | P.GSHP ---
History of Present Illness H&P Date: 05/04/22 CHIEF COMPLAINT: Abdominal pain HISTORY OF PRESENT ILLNESS: This is a 37-year-old female who presented with pain pulmonary at her bellybutton and right lower quadrant. She reports the pain started on Sunday. She has been nauseated no vomiting. Denies any fevers. Stools are loose. The computed tomography scan abdomen and pelvis showed acute appendicitis with intimal thickening of the appendix now measuring up to 12 mm. CAT scan was completed outpatient. Patient was notified a CAT scan findings to come to the hospital. Patient continues to have right lower quadrant pain. She has a past surgical history of hysterectomy cholecystectomy and tubal ligation. Medical history does include asthma and rheumatoid arthritis. Patient is complaining of headache. PAST MEDICAL HISTORY: See below PAST SURGICAL HISTORY: See below MEDICATIONS: See below ALLERGIES: See below SOCIAL HISTORY: No illicit drug use. REVIEW OF SYSTEMS: CONSTITUTIONAL: Denies fever or chills. HEENT: Denies blurred vision, vision changes, or eye pain. Denies hemoptysis CARDIOVASCULAR: Denies chest pain or pressure. RESPIRATORY: No shortness of breath. GASTROINTESTINAL: See HPI for pertinent findings HEMATOLOGIC: Denies bleeding disorders. GENITOURINARY: Denies any blood in urine or increased urinary frequency. SKIN: Denies pruitis. Denies rash. PHYSICAL EXAM: VITAL SIGNS: Reviewed GENERAL: Well-developed in no acute distress. HEENT: No sclera icterus. Extraocular movements grossly intact. Moist buccal mucosa. Head is atraumatic, normocephalic. No nasal drainage. ABDOMEN: Soft. Nondistended. Tenderness to palpation right lower quadrant and umbilicus area NEUROLOGIC: Alert and oriented. Cranial nerves II through XII grossly intact. LABORATORY DATA: WBC is 8.7 Hgb 13.2 platelets 285 sodium is 137 potassium 3.7 creatinine 0.78 Lactic acid 0.7 LFTs and lipase normal Urinalysis no evidence of infection IMAGING: computed tomography scan abdomen and pelvis showed acute appendicitis with intimal thickening of the appendix now measuring up to 12 mm and is situated just anterior to the terminal ileum ASSESSMENT: 1. Acute appendicitis 2. Headache PLAN: -Patient scheduled for laparoscopic appendectomy today with Dr. prado -Keep patient nothing by mouth -Continue antibiotics -Continue supportive care Physician Hydraulic Operator note has been reviewed by physician. Signing provider agrees with the documented findings, assessment, and plan of care. Past Medical History Past Medical History: Rheumatoid Arthritis (RA) Additional Past Medical History / Comment(s): ENDOMETRIOSIS. PCOS. HYSTERECTO MY TUBES AND RIGHT OVARY 03/17/2020 History of Any Multi-Drug Resistant Organisms: None Reported Past Surgical History: Cholecystectomy, Hysterectomy, Tubal Ligation Additional Past Surgical History / Comment(s): Cervical conization 08/2017, uterine ablation Past Anesthesia/Blood Transfusion Reactions: No Reported Reaction Past Psychological History: Depression Smoking Status: Former smoker Past Alcohol Use History: Occasional Additional Past Alcohol Use History / Comment(s): QUIT SMOKING 2016 Past Drug Use History: None Reported - Past Family History Father Family Medical History: Hyperlipidemia, Hypertension Mother Family Medical History: Hypertension Medications and Allergies Home Medications Medication Instructions Recorded Confirmed Type Biotin [Biotin Disolve] 5,000 mcg PO DAILY 12/30/18 05/03/22 History Cetirizine HCl [Zyrtec] 10 mg PO DAILY 03/29/20 05/03/22 History Fluticasone/Vilanterol [Breo 1 puff INHALATION RT-DAILY 03/29/20 05/03/22 History Ellipta 100-25 Mcg Inhaler] sulfaSALAzine [Sulfasalazine] 1,000 mg PO BID 03/29/20 05/03/22 History Albuterol Sulfate [Albuterol 2 puff PO RT-Q6H PRN 05/03/22 05/03/22 History Sulfate Hfa] Citalopram Hydrobromide [CeleXA] 10 mg PO HS 05/03/22 05/03/22 History Clindamycin Phosphate [Cleocin T 1 applic TOPICAL DAILY 05/03/22 05/03/22 History 1%] Doxycycline Hyclate 100 mg PO BID 05/03/22 05/03/22 History Famotidine [Pepcid] 20 mg PO HS 05/03/22 05/03/22 History Flibanserin [Addyi] 100 mg PO DAILY 05/03/22 05/03/22 History Hydroxychloroquine Sulfate 200 mg PO BID 05/03/22 05/03/22 History [Plaquenil] Levothyroxine Sodium [Synthroid] 112 mcg PO DAILY 05/03/22 05/03/22 History Linaclotide [Linzess] 290 mcg PO DAILY 05/03/22 05/03/22 History Omeprazole [PriLOSEC] 40 mg PO DAILY 05/03/22 05/03/22 History Spironolactone [Aldactone] 50 mg PO BID 05/03/22 05/03/22 History buPROPion XL [Wellbutrin XL] 150 mg PO DAILY 05/03/22 05/03/22 History Allergies Allergy/AdvReac Type Severity Reaction Status Date / Time meropenem Allergy Itching Verified 05/03/22 19:44 azithromycin AdvReac Severe Abdominal Verified 05/03/22 19:44 Pain Surgical - Exam Vital Signs Temp Pulse Resp BP Pulse Ox 98.1 F 67 16 130/84 99 05/03/22 19:41 05/03/22 19:41 05/03/22 19:41 05/03/22 19:41 05/03/22 19:41 Results - Labs 05/03/22 19:59 05/03/22 19:59 Abnormal Lab Results - Last 24 Hours (Table) 05/03/22 05/03/22 Range/Units 19:59 22:17 Total Protein 8.5 H (6.3-8.2) g/dL Ur Specific [place] 1.049 H (1.001-1.035) Diabetes panel 05/03/22 Range/Units 19:59 Sodium 137 (137-145) mmol/L Potassium 3.7 (3.5-5.1) mmol/L Chloride 101 (98-107) mmol/L Carbon Dioxide 27 (22-30) mmol/L BUN 8 (7-17) mg/dL Creatinine 0.78 (0.52-1.04) mg/dL Glucose 88 (74-99) mg/dL Calcium 9.1 (8.4-10.2) mg/dL AST 26 (14-36) U/L ALT 25 (4-34) U/L Alkaline Phosphatase 61 (38-126) U/L Total Protein 8.5 H (6.3-8.2) g/dL Albumin 4.6 (3.5-5.0) g/dL Calcium panel 05/03/22 Range/Units 19:59 Calcium 9.1 (8.4-10.2) mg/dL Albumin 4.6 (3.5-5.0) g/dL Pituitary panel 05/03/22 Range/Units 19:59 Sodium 137 (137-145) mmol/L Potassium 3.7 (3.5-5.1) mmol/L Chloride 101 (98-107) mmol/L Carbon Dioxide 27 (22-30) mmol/L BUN 8 (7-17) mg/dL Creatinine 0.78 (0.52-1.04) mg/dL Glucose 88 (74-99) mg/dL Calcium 9.1 (8.4-10.2) mg/dL Adrenal panel 05/03/22 Range/Units 19:59 Sodium 137 (137-145) mmol/L Potassium 3.7 (3.5-5.1) mmol/L Chloride 101 (98-107) mmol/L Carbon Dioxide 27 (22-30) mmol/L BUN 8 (7-17) mg/dL Creatinine 0.78 (0.52-1.04) mg/dL Glucose 88 (74-99) mg/dL Calcium 9.1 (8.4-10.2) mg/dL Total Bilirubin 0.5 (0.2-1.3) mg/dL AST 26 (14-36) U/L ALT 25 (4-34) U/L Alkaline Phosphatase 61 (38-126) U/L Total Protein 8.5 H (6.3-8.2) g/dL Albumin 4.6 (3.5-5.0) g/dL
[2022-05-04] MEDS ORDERED: ONDANSETRON 4 MG/2 ML VIAL IVP ONE (13:00)
[2022-05-04] MEDS ORDERED: HEPARIN SODIUM,PORCINE 5,000 UNIT/ML 1 ML VIAL SQ ONE (13:00)
[2022-05-04] MEDS ORDERED: DEXAMETHASONE SOD PHOSPHATE 4 MG/ML 1 ML VIAL IVP ONE (13:00)
[2022-05-04] MEDS ORDERED: GLYCOPYRROLATE 0.2 MG/ML 2 ML VIAL ONE (13:13)
[2022-05-04] MEDS ORDERED: NEOSTIGMINE 1 MG/ML 10 ML VIAL ONE (13:13)
[2022-05-04] MEDS ORDERED: MIDAZOLAM 2 MG/2 ML VIAL ONE (13:13)
[2022-05-04] MEDS ORDERED: SUCCINYLCHOLINE CHLORIDE 200 MG/10 ML VIAL IV ONE (13:13)
[2022-05-04] MEDS ORDERED: PROPOFOL 10 MG/ML 20 ML VIAL IV ONE (13:13)
[2022-05-04] MEDS ORDERED: fentaNYL (PF) 50 MCG/ML 2 ML AMP ONE (13:13)
[2022-05-04] MEDS ORDERED: ROCURONIUM 10 MG/ML (5 ML VIAL) IV ONE (13:13)
[2022-05-04] MEDS ORDERED: LIDOCAINE 2% INJ 20 MG/ML (2 ML VIAL) ONE (13:13)
[2022-05-04] MEDS ORDERED: BUPIVACAIN-EPI 0.25%-1:200,000 30 ML VIAL SQ ONE (13:17)
[2022-05-04] MEDS ORDERED: LACTATED RINGERS 1,000 ML IV ONE ×2 (13:33→14:04)
[2022-05-04] MEDS ORDERED: NALOXONE 0.4 MG/ML 1 ML VIAL IV PRN (14:04)
[2022-05-04] MEDS ORDERED: HYDROmorphone 0.5 MG/0.5 ML SYRINGE IVP PRN (14:04)
--- NOTE | 2022-05-04 14:04 | P.OP ---
Date of Procedure: 05/04/22 Preoperative Diagnosis: Acute cholecystitis Postoperative Diagnosis: Acute cholecystitis Procedure(s) Performed: Laparoscopic cholecystectomy Anesthesia: VERONICA Surgeon: Eligio Saez Estimated Blood Loss (ml): 5 Pathology: other (Appendix) Condition: stable Disposition: PACU Description of Procedure: The patient's placed on the operating table in the supine position. The patient received general anesthesia. The abdomen was prepped and draped in the usual sterile fashion. The skin was anesthetized 1% local Xylocaine at the trocar sites. Using an 11 blade the skin was incised at the umbilicus. The umbilicus was grasped with a Ros clamp and then a Veress needle was placed into the peritoneal cavity. Position of the Veress needle was confirmed with positive drop test. After adequate insufflation a 5 mm trocar was placed into the peritoneal cavity. The abdomen was further insufflated. And then the laparoscope was placed in the peritoneal cavity. Next a 5 mm trocar was placed in the midline suprapubic position. And then a 10 mm trocar was placed in the midline epigastric position. The patient was rotated with the right side up and in Trendelenburg. The appendix was visualized. The appendix appeared to be inflamed. The appendix was grasped and then using the Harmonic scissors the mesoappendix was divided. A PDS Endoloop was then placed around the base of the appendix. And then the appendix was divided using Harmonic scissors. The appendix was placed into an Endo Catch and brought out through the 10 mm trocar site. The abdomen was irrigated. There is no bleeding seen. The trochars withdrawn. The skin was closed interrupted 3-0 Monocryl suture. Dermabond dressing was applied. Patient was sent to recovery room in stable condition.
[2022-05-04] MEDS: HYDROmorphone 1 MG/ML 1 ML SYRINGE IVP PRN (14:52)
[2022-05-04] MEDS: KETOROLAC 15 MG/ML 1 ML VIAL IVP SCH (18:34)
[2022-05-04] MEDS: SYMBICORT 80-4.5 MCG INHALER INHALATION SCH (20:05)
[2022-05-04] MEDS ORDERED: CITALOPRAM HYDROBROMIDE 10 MG TAB PO SCH (21:00)
[2022-05-04] MEDS: HYDROcodone/APAP 5-325MG 1 EACH TAB PO PRN (21:28)
[2022-05-05] MEDS: HYDROmorphone 1 MG/ML 1 ML SYRINGE IVP PRN ×2 (01:58→10:07)
[2022-05-05] MEDS: PIPERACILLIN-TAZOBACTAM 3.375 GM in SODIUM CHLORIDE 0.9% 100 ML IVPB SCH ×2 (01:59→11:07)
[2022-05-05] MEDS: HYDROcodone/APAP 5-325MG 1 EACH TAB PO PRN ×3 (03:36→15:53)
[2022-05-05] MEDS ORDERED: LEVOTHYROXINE 112 MCG TAB PO SCH (06:30)
[2022-05-05] MEDS: KETOROLAC 15 MG/ML 1 ML VIAL IVP SCH ×3 (06:35→11:07)
[2022-05-05] MEDS: sulfaSALAzine 500 MG TAB PO SCH (07:43)
[2022-05-05] MEDS: HYDROXYCHLOROQUINE SULFATE 200 MG TAB PO SCH (07:44)
[2022-05-05] MEDS: LACTOBACILLUS ACIDOPH & BULGAR 1 EACH PACKET PO SCH (07:44)
[2022-05-05] MEDS: LORATADINE 10 MG TAB PO SCH (07:44)
[2022-05-05] MEDS: SPIRONOLACTONE 25 MG TAB PO SCH (07:45)
[2022-05-05] MEDS: PANTOPRAZOLE 40 MG TABLET PO SCH (07:45)
[2022-05-05] MEDS: FAMOTIDINE 20 MG TAB PO SCH (07:45)
[2022-05-05] MEDS: CHOLECALCIFEROL 125 MCG (5000 IU) TABLET PO SCH (07:46)
[2022-05-05] MEDS: FOLIC ACID 1 MG TAB PO SCH (07:47)
[2022-05-05] MEDS: CITALOPRAM HYDROBROMIDE 10 MG TAB PO SCH ×2 (07:50→07:55)
[2022-05-05] MEDS ORDERED: buPROPion XL 150 MG TAB.ER.24H PO SCH (09:00)
[2022-05-05] MEDS ORDERED: ENOXAPARIN 40 MG/0.4 ML SYRINGE SQ SCH (09:00)
[2022-05-05] MEDS: SYMBICORT 80-4.5 MCG INHALER INHALATION SCH (09:06)
[2022-05-05] MEDS: SODIUM CHLORIDE 0.9% 1,000 ML IV SCH ×3 (10:28→14:47)
--- NOTE | 2022-05-05 11:13 | P.PN ---
Subjective Progress Note Date: 05/05/22 Hospital course: Patient is a very pleasant 37-year-old female with a past medical history of rheumatoid arthritis, asthma, hypothyroidism, depression and endometriosis status post hysterectomy. She is currently admitted under Gen. surgery team for acute appendicitis. We have been consulted for medical management throughout patient's hospitalization. Patient presented to the emergency department on 05/03/22 as directed by her physician after obtaining an outpatient CT concerning for acute appendicitis. Patient reports on 05/01/22 she began developing right lower quadrant and umbilical pain and overall feeling as though something was wrong so she went to her PCP for evaluation and was sent for an outpatient CT. CT reported evidence of acute appendicitis with interval thickening of the appendix measuring up to 12 mm. Patient then directed to the emergency department. In the emergency department patient underwent full evaluation. CBC, CMP, and urinalysis completed and upon review all were unremarkable and negative for acute abnormalities. She was admitted under Gen. surgery team and we were consulted for medical management. Patient was taken for laparoscopic appendectomy on 05/04/22. Physical exam: Patient was seen and fully evaluated at bedside this morning. She denied having any complaints or concerns at this time, however was tearful and did report having periods of postoperative uncontrolled pain but currently reports pain is being managed much better at this time with current pain medication regimen. She is tolerating oral intake and denied having any nausea, vomiting, chest pain, palpitations, or shortness of breath. Vital signs stable with blood pressure 114/75, heart rate 57, respiratory rate 17, and SpO2 of 100% on room air. Temp is 97.9F orally. Medically patient is stable for discharge once cleared by primary admitting general surgery team. Vital signs reviewed and stable. General: Nontoxic, no distress and appears stated age. Derm: Skin warm and dry, normal coloration for ethnicity. Head: Atraumatic, normocephalic and symmetric. Eyes: EOMs intact, no lid lag, and anicteric sclera Mouth: no lip lesions, mucus membranes moist Cardiovascular: regular rate and rhythm with normal S1S2, no murmur, positive posterior tibial pulses bilaterally, and cap refill < 2 seconds. Lungs: Respirations even, regular, and unlabored on room air. Lungs CTA bilaterally, no rhonchi, no rales, no wheezing, and no accessory muscle usage. Abdominal: soft, tenderness to palpation right upper and lower quadrant, no appreciable organomegaly and no rigidity Ext: ROM intact. No gross muscle atrophy, no edema, no contractures Neuro: Speech clear, face symmetrical and CN II-XII grossly intact with no noted focal neuro deficits Psych: Alert and oriented to person, place, time, and situation. Appropriate and pleasant affect. Assessment and Plan of Care: Acute appendicitis -Management per primary admitting general surgery team including DVT prophylaxis, pain management, and postsurgical wound/dressing care. -Patient underwent laparoscopic appendectomy on 05/04/22 -Continue IV antibiotics with Zosyn -Patient currently on DVT prophylaxis with Lovenox Rheumatoid arthritis -Resume DMARD's hydroxychloroquine and sulfasalazine once cleared by general surgery to resume -Symptomatic care and pain management. Depression and anxiety -Continue daily medication regimen with Celexa and Wellbutrin. Hypothyroidism -Continue daily medication regimen with levothyroxine. Thank you for allowing us to participate in the care of this pleasant patient. Do not hesitate to contact us with questions. Someone can be reached from the [facility]Note 3] hospitalist group all hours of the day at [phone] or via [employer]. I reviewed the documentation as provided by the DANI above, who is the original author of this note. I agree with the documented assessment and plan, with the following changes: none Objective - Vital Signs Vital signs: Vital Signs Temp 97.9 F 05/05/22 07:04 Pulse 57 L 05/05/22 07:04 Resp 17 05/05/22 07:04 BP 114/75 05/05/22 07:04 Pulse Ox 100 05/05/22 07:04 FiO2 Intake & Output 05/04/22 05/05/22 05/05/22 18:59 06:59 18:59 Intake Total 800 Output Total 5 Balance 795 Intake: IV 800 Output: Estimated Blood Loss 5 Other: Voiding Method Toilet # Voids 1 2 - Labs CBC & Chem 7: 05/03/22 19:59 05/03/22 19:59
--- NOTE | 2022-05-05 14:30 | P.OP ---
Date of Procedure: 05/04/22 Preoperative Diagnosis: Acute appendicitis Postoperative Diagnosis: T acute appendicitis Procedure(s) Performed: laparoscopic appendectomy Anesthesia: VERONICA Surgeon: Eligio Saez Estimated Blood Loss (ml): 5 Pathology: other (appendix) Condition: stable Disposition: PACU Description of Procedure: w the patient is placed in the operative table in the supine position. She received IV anesthesia and then general anesthesia. Her abdomen was prepped and draped you sterile fashion. The skin incision sites were anesthetized with 1% local Xylocaine. Using an 11 blade the infraumbilical skin incision was made. Then using a pair of Sherman clamps the fascia was grasped. The Veress needle was placed into the peritoneal cavity. Position of the Veress needle was confirmed with a positive drop test. After adequate insufflation a 5 mm trocar was placed into the infraumbilical skin incision site. Next a laparoscope placed currently having. Next a 10 mm trocar was placed in the epigastric position. And a 5 mm trochars placed in the suprapubic position. The appendix was visualized. The appendix. Inflamed. The mesoappendix was then divided with harmonic scissors. And then an Endoloop was placed around the base of the appendix. This was secured. The appendix was then divided using hemostasis. The appendix then placed in Endo Catch and brought out through the 10 mm trocar site. The abdomen is irrigated there is no bleeding seen. The tremors are withdrawn. The skin is closed after 3-0 Monocryl suture. Dermabond dressing applied. Patient tolerated well sent to recovery room in stable condition.
--- NOTE | 2022-05-05 14:34 | P.DS ---
Providers Date of admission: 05/03/22 20:36 Expected date of discharge: 05/05/22 Attending physician: Eligio Saez Consults: 05/04/22 10:35 Consult Physician Routine Consulting Provider: Mackenzie Fragoso Consult Reason/Comments: medical management Do you want consulting provider notified?: Already Contacted [facility] Course: Discharge diagnosis 1. Acute appendicitis status post laparoscopic appendectomy Hospital course This is a 37-year-old female who presented with pain pulmonary at her bellybutton and right lower quadrant. The computed tomography scan abdomen and pelvis showed acute appendicitis with intimal thickening of the appendix now measuring up to 12 mm. Patient is status post laparoscopic appendectomy. Patient tolerated surgery well. Her pain is controlled. She is tolerating diet. She's afebrile. She has been up and ambulating. She is having flatus. She is afebrile. She is stable for discharge. Please refer to chart for further details. Physician Special Population Paraprofessional note has been reviewed by physician. Signing provider agrees with the documented findings, assessment, and plan of care. Patient Condition at Discharge: Stable Plan - Discharge Summary Discharge Rx Participant: No New Discharge Prescriptions: New Amoxic-Pot Clav 875-125Mg [Augmentin 875-125] 1 tab PO Q12HR 10 Days #20 tab Ibuprofen [Motrin] 600 mg PO Q8HR PRN #30 tab PRN Reason: Pain Acetaminophen Tab [Tylenol Tab] 650 mg PO Q4H PRN #30 tablet PRN Reason: Pain oxyCODONE HCL [OxyIR] 5 mg PO Q6H PRN 3 Days #12 tab PRN Reason: Pain Continue Biotin [Biotin Disolve] 5,000 mcg PO DAILY Cetirizine HCl [Zyrtec] 10 mg PO DAILY Fluticasone/Vilanterol [Breo Ellipta 100-25 Mcg Inhaler] 1 puff INHALATION RT-DAILY sulfaSALAzine [Sulfasalazine] 1,000 mg PO BID Flibanserin [Addyi] 100 mg PO DAILY Famotidine [Pepcid] 20 mg PO HS Doxycycline Hyclate 100 mg PO BID Clindamycin Phosphate [Cleocin T 1%] 1 applic TOPICAL DAILY Spironolactone [Aldactone] 50 mg PO BID Omeprazole [PriLOSEC] 40 mg PO DAILY Linaclotide [Linzess] 290 mcg PO DAILY Levothyroxine Sodium [Synthroid] 112 mcg PO DAILY Hydroxychloroquine Sulfate [Plaquenil] 200 mg PO BID buPROPion XL [Wellbutrin XL] 150 mg PO DAILY Citalopram Hydrobromide [CeleXA] 10 mg PO HS Albuterol Sulfate [Albuterol Sulfate Hfa] 2 puff PO RT-Q6H PRN PRN Reason: Shortness Of Breath Discharge Medication List Biotin [Biotin Disolve] 5,000 mcg PO DAILY 12/30/18 [History] Cetirizine HCl [Zyrtec] 10 mg PO DAILY 03/29/20 [History] Fluticasone/Vilanterol [Breo Ellipta 100-25 Mcg Inhaler] 1 puff INHALATION RT- DAILY 03/29/20 [History] sulfaSALAzine [Sulfasalazine] 1,000 mg PO BID 03/29/20 [History] Albuterol Sulfate [Albuterol Sulfate Hfa] 2 puff PO RT-Q6H PRN 05/03/22 [History] Citalopram Hydrobromide [CeleXA] 10 mg PO HS 05/03/22 [History] Clindamycin Phosphate [Cleocin T 1%] 1 applic TOPICAL DAILY 05/03/22 [History] Doxycycline Hyclate 100 mg PO BID 05/03/22 [History] Famotidine [Pepcid] 20 mg PO HS 05/03/22 [History] Flibanserin [Addyi] 100 mg PO DAILY 05/03/22 [History] Hydroxychloroquine Sulfate [Plaquenil] 200 mg PO BID 05/03/22 [History] Levothyroxine Sodium [Synthroid] 112 mcg PO DAILY 05/03/22 [History] Linaclotide [Linzess] 290 mcg PO DAILY 05/03/22 [History] Omeprazole [PriLOSEC] 40 mg PO DAILY 05/03/22 [History] Spironolactone [Aldactone] 50 mg PO BID 05/03/22 [History] buPROPion XL [Wellbutrin XL] 150 mg PO DAILY 05/03/22 [History] Acetaminophen Tab [Tylenol Tab] 650 mg PO Q4H PRN #30 tablet 05/05/22 [Rx] Amoxic-Pot Clav 875-125Mg [Augmentin 875-125] 1 tab PO Q12HR 10 Days #20 tab 05/05/22 [Rx] Ibuprofen [Motrin] 600 mg PO Q8HR PRN #30 tab 05/05/22 [Rx] oxyCODONE HCL [OxyIR] 5 mg PO Q6H PRN 3 Days #12 tab 05/05/22 [Rx] Follow up Appointment(s)/Referral(s): Roger Zayas DO [Primary Care Provider] - 1-2 days Eligio Saez MD [STAFF PHYSICIAN] - 1 Week Activity/Diet/Wound Care/Special Instructions: No driving while taking OxyIR No lifting over 10 pounds Shower daily. No soaking or tub baths for 2 weeks Very light activity until you are reevaluated at your follow up appointment with your surgeon Discharge Disposition: HOME SELF-CARE
[2022-05-05 15:53] VITALS: BP 115/74; PULSE 67; RESP 18; TEMP 98.7
== END 2022-05-05 16:29 | disposition home or self-care (01) ==
LOC: EC 19:24 → 4SSUR 20:36
PROVIDERS: ADMIT Surgery; ATTEND Surgery
DX: K35.80 Unspecified acute appendicitis (principal); E28.2 Polycystic ovarian syndrome; Z98.890 Other specified postprocedural states; E03.9 Hypothyroidism, unspecified; J45.909 Unspecified asthma, uncomplicated; F32.A Depression, unspecified; F41.9 Anxiety disorder, unspecified; Z87.891 Personal history of nicotine dependence; Z83.438 Family history of other disorder of lipoprotein metabolism and other lipidemia; Z82.49 Family history of ischemic heart disease and other diseases of the circulatory system; Z90.710 Acquired absence of both cervix and uterus; Z90.49 Acquired absence of other specified parts of digestive tract; Z98.51 Tubal ligation status; Z79.890 Hormone replacement therapy; Z79.51 Long term (current) use of inhaled steroids; Z79.899 Other long term (current) drug therapy; Z88.8 Allergy status to other drugs, medicaments and biological substances
CPT/HCPCS: 96374; 96375; 99284; 36415; 94640 ×2; 88304; 80053; 83605; 83690; 85025; 81003; 44970; G0378 ×3; J2543 ×2; J2250; J0330; J0780; J1644; J1100; J2710; J2405 ×2; J1650; J3010; J1170 ×3; J1956; J1885 ×2; J2704; J2001

== ENCOUNTER → 2022-05-03 | Outpatient (CLI) | payer BC ==
--- NOTE | 2022-05-03 19:09 | CT ---
EXAMINATION TYPE: CT abdomen pelvis w con CT DLP: 1229.9 mGycm, Automated exposure control for dose reduction was used. DATE OF EXAM: 05/03/2022 6:52 PM COMPARISON: CT abdomen pelvis most recent from 04/15/2020 CLINICAL INDICATION:Female, 37 years old with history of R10.31 RIGHT LOWER QUADRANT PAIN; RIGHT LOWE R QUADRANT PAIN TECHNIQUE: Axial CT of the abdomen and pelvis. Sagittal and coronal reformats were created on a [employer] workstation. Contrast used:100ML mL of Isovue 300 with IV Contrast, Oral contrast used: with Oral Contrast FINDINGS: LOWER CHEST: Unremarkable ABDOMEN LIVER: Unremarkable GALLBLADDER AND BILE DUCTS: Unremarkable. PANCREAS: Unremarkable. SPLEEN: Unremarkable. ADRENAL GLANDS: Unremarkable. KIDNEYS AND URETERS: No evidence of hydronephrosis or renal calculus. The ureters are unremarkable. PELVIS BLADDER: Unremarkable REPRODUCTIVE: r multiple follicles are noted within the right ovary removed measuring up to 2.6 cm. ABDOMEN & PELVIS STOMACH AND BOWEL: No evidence of bowel obstruction. The appendix is enlarged measuring up to 12 mm, previously 6 mm on 04/15/2020 and is positioned just anterior to the terminal ileum. Mild fat strandi ng changes are seen around the appendix which are new. PERITONEUM/RETROPERITONEUM: No evidence of pneumoperitoneum or free fluid. . VASCULATURE: No evidence of aortic aneurysm. MUSCULOSKELETAL: No acute osseous abnormalities LYMPH NODES: No gross evidence for lymphadenopathy. There are a few prominent right lower quadrant no idania. SOFT TISSUE/ABDOMINAL WALL: Unremarkable IMPRESSION: Evidence of acute appendicitis with Interval thickening of the appendix now measuring up to 12 millim eters and is situated just anterior to the terminal ileum.
== END | disposition home or self-care (01) ==
LOC: RADCTMAIN 16:49
PROVIDERS: ATTEND Family Medicine
DX: K35.80 Unspecified acute appendicitis (principal); K38.8 Other specified diseases of appendix
CPT/HCPCS: 74177; Q9967

== ENCOUNTER → 2023-04-14 | Outpatient (CLI) | payer BC ==
--- NOTE | 2023-04-14 16:05 | XR ---
EXAMINATION TYPE: XR thoracic spine 3V DATE OF EXAM: 04/14/2023 COMPARISON: NONE HISTORY: 38-year-old female with back pain M05.79,M51.34 TECHNIQUE: 3 views FINDINGS: Gentle levoconvex angulation of the thoracic spine. All pedicles are visualized. Mild degen erative disc disease mid thoracic spine. Vertebral body heights are preserved and alignment is mainta ined. IMPRESSION: Gentle levoconvex curvature of the lower thoracic spine. No vertebral compression collapse or malalig nment. Mild degenerative disc disease midthoracic spine.
== END | disposition home or self-care (01) ==
LOC: RADXRMAIN 13:17
PROVIDERS: ATTEND Internal Medicine Rheumatology
DX: M51.34 Other intervertebral disc degeneration, thoracic region (principal); M05.79 Rheumatoid arthritis with rheumatoid factor of multiple sites without organ or systems involvement; M43.8X4 Other specified deforming dorsopathies, thoracic region
CPT/HCPCS: 72070

== ENCOUNTER 2024-05-13 15:43 | Emergency (ER) | payer BC ==
[2024-05-13 15:57] VITALS: RESP 18; TEMP 98.1
--- NOTE | 2024-05-13 16:18 | ED ---
Fall HPI - General Chief Complaint: Fall Stated Complaint: Fall-Dizziness,headache Time Seen by Provider: 05/13/24 16:17 Source: patient, family, RN notes reviewed Mode of arrival: ambulatory Limitations: no limitations - History of Present Illness Initial Comments: 39-year-old female presented the ER for evaluation of headache and dizziness. Patient states about a week and a half ago she was in her dog kennel and accidentally stood up hitting the top of her head on a wooden beam. She denies loss of consciousness or blood thinner use. She states since , she has been feeling "woozy". She states she was awoken from a sleep on Sunday feeling extremely dizzy. She does report dizziness is positional and worse with head and body movements. She states this has mildly subsided. Patient states she is reporting a consistent headache over the left side of her face and head. She has tried [id number] Tylenol with no relief. Patient does report a history of migraines and takes Nurtec, cyclobenzaprine and Avojy injections. She states the pain does not see it feels similar to a typical migraine. She does admit to photophobia but denies double blurry vision. She denies any other injury from incident. No other complaints at this time. - Related Data Home Medications Medication Instructions Recorded Confirmed Biotin [Biotin Disolve] 5,000 mcg PO DAILY 12/30/18 05/03/22 Cetirizine HCl [Zyrtec] 10 mg PO DAILY 03/29/20 05/03/22 Fluticasone/Vilanterol [Breo 1 puff INHALATION RT-DAILY 03/29/20 05/03/22 Ellipta 100-25 Mcg Inhaler] sulfaSALAzine 1,000 mg PO BID 03/29/20 05/03/22 Albuterol Sulfate [Albuterol 2 puff PO RT-Q6H PRN 05/03/22 05/03/22 Sulfate Hfa] Citalopram Hydrobromide [CeleXA] 10 mg PO HS 05/03/22 05/03/22 Clindamycin Phosphate [Cleocin T 1 applic TOPICAL DAILY 05/03/22 05/03/22 1%] Doxycycline Hyclate 100 mg PO BID 05/03/22 05/03/22 Famotidine [Pepcid] 20 mg PO HS 05/03/22 05/03/22 Flibanserin [Addyi] 100 mg PO DAILY 05/03/22 05/03/22 Hydroxychloroquine Sulfate 200 mg PO BID 05/03/22 05/03/22 [Plaquenil] Levothyroxine Sodium [Synthroid] 112 mcg PO DAILY 05/03/22 05/03/22 Linaclotide [Linzess] 290 mcg PO DAILY 05/03/22 05/03/22 Omeprazole [PriLOSEC] 40 mg PO DAILY 05/03/22 05/03/22 Spironolactone [Aldactone] 50 mg PO BID 05/03/22 05/03/22 buPROPion XL [Wellbutrin XL] 150 mg PO DAILY 05/03/22 05/03/22 Previous Rx's Medication Instructions Recorded Acetaminophen Tab [Tylenol Tab] 650 mg PO Q4H PRN #30 tablet 05/05/22 Amoxic-Pot Clav 875-125Mg 1 tab PO Q12HR 10 Days #20 tab 05/05/22 [Augmentin 875-125] Ibuprofen [Motrin] 600 mg PO Q8HR PRN #30 tab 05/05/22 oxyCODONE HCL [OxyIR] 5 mg PO Q6H PRN 3 Days #12 tab 05/05/22 Allergies Allergy/AdvReac Type Severity Reaction Status Date / Time meropenem Allergy Itching Verified 05/13/24 15:57 azithromycin AdvReac Severe Abdominal Verified 05/13/24 15:57 Pain Review of Systems ROS Statement: Those systems with pertinent positive or pertinent negative responses have been documented in the HPI. ROS Other: All systems not noted in ROS Statement are negative. Past Medical History Past Medical History: Rheumatoid Arthritis (RA) Additional Past Medical History / Comment(s): ENDOMETRIOSIS. PCOS. HYSTERECTOMY TUBES AND RIGHT OVARY 03/17/2020 History of Any Multi-Drug Resistant Organisms: None Reported Past Surgical History: Cholecystectomy, Hysterectomy, Tubal Ligation Additional Past Surgical History / Comment(s): Cervical conization 08/2017, uterine ablation Past Anesthesia/Blood Transfusion Reactions: No Reported Reaction Past Psychological History: Depression Smoking Status: Former smoker Past Alcohol Use History: Occasional Past Drug Use History: None Reported - Past Family History Father Family Medical History: Hyperlipidemia, Hypertension Mother Family Medical History: Hypertension General Exam - General Exam Comments Initial Comments: Visual Physical Exam Vital signs reviewed General: Well-appearing, nontoxic, no acute distress. Head: Normocephalic, atraumatic Eyes: PERRLA, EOMI ENT: Airway patent Chest: Nonlabored breathing Skin: No visual rash, normal skin tone Neuro: Alert and oriented 3 Musculoskeletal: No gross abnormalities Limitations: no limitations General appearance: alert, in no apparent distress Head exam: Present: atraumatic, normocephalic, normal inspection Eye exam: Present: normal appearance, PERRL, EOMI. Absent: scleral icterus, conjunctival injection, periorbital swelling Pupils: Present: normal accommodation ENT exam: Present: normal exam, normal oropharynx, mucous membranes moist, other (No raccoon eyes or Valdez sign) Neck exam: Present: normal inspection. Absent: tenderness, meningismus, lymphadenopathy Respiratory exam: Present: normal lung sounds bilaterally. Absent: respiratory distress, wheezes, rales, rhonchi, stridor Cardiovascular Exam: Present: regular rate, normal rhythm, normal heart sounds. Absent: systolic murmur, diastolic murmur, rubs, gallop, clicks Extremities exam: Present: normal inspection, full ROM, normal capillary refill. Absent: tenderness, pedal edema, joint swelling, calf tenderness Neurological exam: Present: alert, oriented X3, CN II-XII intact Skin exam: Present: warm, dry, intact, normal color. Absent: rash Course Vital Signs 05/13/24 05/13/24 05/13/24 15:54 18:12 21:10 Temperature 98.1 F Pulse Rate 94 84 77 Respiratory 18 18 18 Rate Blood Pressure 146/86 125/84 130/83 O2 Sat by Pulse 100 100 95 Oximetry Medical Decision Making - Medical Decision Making I performed the quick note portion of this chart. Electronically signed by Jackelyn Francisco PA-C Was pt. sent in by a medical professional or institution ([facility], [employer], urgent care, hospital, or retirement...) When possible be specific @ -No Did you speak to anyone other than the patient for history (EMS, parent, family, police, friend...)? What history was obtained from this source @ -Significant other, at bedside, aiding in HPI and PMHx. Did you review nursing and triage notes (agree or disagree)? Why? @ -I reviewed and agree with nursing and triage notes Were old charts reviewed (outside hosp., previous admission, EMS record, old EKG, old radiological studies, urgent care reports/EKG's, retirement records)? Report findings @ -No old charts were reviewed Differential Diagnosis (chest pain, altered mental status, abdominal pain women, abdominal pain men, vaginal bleeding, weakness, fever, dyspnea, syncope, headache, dizziness, GI bleed, back pain, seizure, CVA, palpatations, mental health, musculoskeletal)? @ -Differential Headache:Migraine, tension, cluster, carbon monoxide, central venous thrombosis, pension karma temporal arteritis, acute closure glaucoma, intercranial hemorrhage, mastoiditis, sinusitis, head injury, this is not meant to be an all-inclusive list. EKG interpreted by me (3pts min.). @ -As above X-rays interpreted by me (1pt min.). @ -None done CT interpreted by me (1pt min.). @ -CT brain negative for acute intracranial process. U/S interpreted by me (1pt. min.). @ -None done What testing was considered but not performed or refused? (CT, X-rays, U/S, labs)? Why? @ -None What meds were considered but not given or refused? Why? @ -None Did you discuss the management of the patient with other professionals (professionals i.e. , PA, PILE DRIVER ENGINEER, lab, RT, psych nurse, psychiatric social worker supervisor, field research assistant, teacher, job placement officer, upper caser)? Give summary @ -No Was smoking cessation discussed for >3mins.? @ -No Was critical care preformed (if so, how long)? @ -No Were there social determinants of health that impacted care today? How? (Homelessness, low income, unemployed, alcoholism, drug addiction, transportation, low edu. Level, literacy, decrease access to med. care, care home, rehab)? @ -No Was there de-escalation of care discussed even if they declined (Discuss DNR or withdrawal of care, Hospice)? DNR status @ -No What co-morbidities impacted this encounter? (DM, HTN, Smoking, COPD, CAD, Cancer, CVA, ARF, Chemo, Hep., AIDS, mental health diagnosis, sleep apnea, morbid obesity)? @ -None Was patient admitted / discharged? Hospital course, mention meds given and route, prescriptions, significant lab abnormalities, going to OR and other pertinent info. @ -Discharge. 39-year-old female presented to the ER for evaluation of a headache and dizziness x 5 days s/p head injury. Upon examination, history and physical exam completed. Vitals within acceptable limits. Patient in no signs of acute distress nontoxic-appearing. No acute neurological findings on exam. Laboratory studies obtained unimpressive. Urinalysis unremarkable. hCG negative. Viral swabs negative. CT brain performed as patient reports consistent headache with dizziness not consistent with typical migraine. This is negative for acute intracranial process. Patient given IV fluids along with Tylenol, Decadron, Toradol and Reglan for symptom control in the ER with some improvement. Upon reevaluation, results discussed with patient, all questions answered. Patient is eager for discharge. Strict return parameters discussed. Patient discharged in stable condition with follow-up to PCP. Patient verbally expressed understanding and agreement with care plan. Case discussed with ED attending, Dr. Dong. Undiagnosed new problem with uncertain prognosis? @ -No Drug Therapy requiring intensive monitoring for toxicity (Heparin, Nitro, Insulin, Cardizem)? @ -No Were any procedures done? @ -No Diagnosis/symptom? @ -Headache Acute, or Chronic, or Acute on Chronic? @ -Acute Uncomplicated (without systemic symptoms) or Complicated (systemic symptoms)? @ -Uncomplicated Side effects of treatment? @ -No Exacerbation, Progression, or Severe Exacerbation? @ -No Poses a threat to life or bodily function? How? (Chest pain, USA, NH, pneumonia, PE, COPD, DKA, ARF, appy, cholecystitis, CVA, Diverticulitis, Homicidal, Suicidal, threat to staff... and all critical care pts) @ -No - Lab Data Result diagrams: 05/13/24 18:49 05/13/24 18:49 Lab Results 05/13/24 05/13/24 05/13/24 Range/Units 17:39 18:05 18:05 WBC (3.8-10.6) k/uL RBC (3.80-5.40) m/uL Hgb (11.4-16.0) gm/dL Hct (34.0-46.0) % MCV (80.0-100.0) fL MCH (25.0-35.0) pg MCHC (31.0-37.0) g/dL RDW (11.5-15.5) % Plt Count (150-450) k/uL MPV Neutrophils % % Lymphocytes % % Monocytes % % Eosinophils % % Basophils % % Neutrophils # (1.3-7.7) k/uL Lymphocytes # (1.0-4.8) k/uL Monocytes # (0-1.0) k/uL Eosinophils # (0-0.7) k/uL Basophils # (0-0.2) k/uL Sodium (137-145) mmol/L Potassium (3.5-5.1) mmol/L Chloride (98-107) mmol/L Carbon Dioxide (22-30) mmol/L Anion Gap mmol/L BUN (7-17) mg/dL Creatinine (0.52-1.04) mg/dL Est GFR (CKD-EPI)AfAm (>60 ml/min/1.73 sqM) Est GFR (CKD-EPI)NonAf (>60 ml/min/1.73 sqM) Glucose (74-99) mg/dL Calcium (8.4-10.2) mg/dL Total Bilirubin (0.2-1.3) mg/dL AST (14-36) U/L ALT (4-34) U/L Alkaline Phosphatase (38-126) U/L Total Protein (6.3-8.2) g/dL Albumin (3.5-5.0) g/dL Urine Color Colorless Urine Appearance Clear (Clear) Urine pH 7.0 (5.0-8.0) Ur Specific [place] 1.010 (1.001-1.035) Urine Protein Negative (Negative) Urine Glucose (UA) Negative (Negative) Urine Ketones Negative (Negative) Urine Blood Negative (Negative) Urine Nitrite Negative (Negative) Urine Bilirubin Negative (Negative) Urine Urobilinogen <2.0 (<2.0) mg/dL Ur Leukocyte Esterase Negative (Negative) Urine HCG, Qual Not Detected (Not Detectd) Influenza Type A (PCR) Not Detected (Not Detectd) Influenza Type B (PCR) Not Detected (Not Detectd) RSV (PCR) Not Detected (Not Detectd) SARS-CoV-2 (PCR) Not Detected (Not Detectd) 05/13/24 05/13/24 Range/Units 18:49 18:49 WBC 11.5 H (3.8-10.6) k/uL RBC 4.10 (3.80-5.40) m/uL Hgb 13.2 (11.4-16.0) gm/dL Hct 38.4 (34.0-46.0) % MCV 93.9 (80.0-100.0) fL MCH 32.3 (25.0-35.0) pg MCHC 34.4 (31.0-37.0) g/dL RDW 11.8 (11.5-15.5) % Plt Count 282 (150-450) k/uL MPV 8.3 Neutrophils % 64 % Lymphocytes % 28 % Monocytes % 4 % Eosinophils % 3 % Basophils % 0 % Neutrophils # 7.3 (1.3-7.7) k/uL Lymphocytes # 3.2 (1.0-4.8) k/uL Monocytes # 0.5 (0-1.0) k/uL Eosinophils # 0.3 (0-0.7) k/uL Basophils # 0.0 (0-0.2) k/uL Sodium 138 (137-145) mmol/L Potassium 3.7 (3.5-5.1) mmol/L Chloride 104 (98-107) mmol/L Carbon Dioxide 29 (22-30) mmol/L Anion Gap 5 mmol/L BUN 13 (7-17) mg/dL Creatinine 0.73 (0.52-1.04) mg/dL Est GFR (CKD-EPI)AfAm >90 (>60 ml/min/1.73 sqM) Est GFR (CKD-EPI)NonAf >90 (>60 ml/min/1.73 sqM) Glucose 66 L (74-99) mg/dL Calcium 8.9 (8.4-10.2) mg/dL Total Bilirubin 0.5 (0.2-1.3) mg/dL AST 21 (14-36) U/L ALT 22 (4-34) U/L Alkaline Phosphatase 64 (38-126) U/L Total Protein 7.1 (6.3-8.2) g/dL Albumin 4.2 (3.5-5.0) g/dL Urine Color Urine Appearance (Clear) Urine pH (5.0-8.0) Ur Specific [place] (1.001-1.035) Urine Protein (Negative) Urine Glucose (UA) (Negative) Urine Ketones (Negative) Urine Blood (Negative) Urine Nitrite (Negative) Urine Bilirubin (Negative) Urine Urobilinogen (<2.0) mg/dL Ur Leukocyte Esterase (Negative) Urine HCG, Qual (Not Detectd) Influenza Type A (PCR) (Not Detectd) Influenza Type B (PCR) (Not Detectd) RSV (PCR) (Not Detectd) SARS-CoV-2 (PCR) (Not Detectd) - Radiology Data Radiology results: report reviewed, image reviewed Disposition Clinical Impression: Headache Disposition: HOME SELF-CARE Condition: Stable Additional Instructions: Follow-up with PCP. Return to the ER for any new or worsening symptoms. Is patient prescribed a controlled substance at d/c from ED?: No Referrals: Roger Zayas DO [Primary Care Provider] - 1-2 days Time of Disposition: 21:01
[2024-05-13 18:30] LABS: Appearance,Urine Clear (Clear); Bilirubin,Urine Negative (Negative); Blood,Urine Negative (Negative); Color,Urine Colorless; Glucose,Urine (UA) Negative (Negative); Ketones,Urine Negative (Negative); Leukocyte Esterase,Urine Negative (Negative); Nitrite,Urine Negative (Negative); Protein,Urine Negative (Negative); Urobilinogen,Urine <2.0 mg/dL (<2.0)
[2024-05-13 18:46] LABS: Influenza A Not Detected (Not Detectd); Influenza B Not Detected (Not Detectd); RSV Not Detected (Not Detectd)
[2024-05-13 19:03] LABS: Basophils % (A) 0 %; Eosinophils # (A) 0.3 k/uL (0-0.7); Eosinophils % (A) 3 %; HCT 38.4 % (34.0-46.0); HGB 13.2 gm/dL (11.4-16.0); Lymphocytes # (A) 3.2 k/uL (1.0-4.8); Lymphocytes % (A) 28 %; MCH 32.3 pg (25.0-35.0); MCHC 34.4 g/dL (31.0-37.0); MCV 93.9 fL (80.0-100.0); Mean Platelet Volume 8.3; Monocytes # (A) 0.5 k/uL (0-1.0); Monocytes % (A) 4 %; Neutrophils # (A) 7.3 k/uL (1.3-7.7); Neutrophils % (A) 64 %; Platelet Count 282 k/uL (150-450); RDW 11.8 % (11.5-15.5); WBC 11.5 k/uL (3.8-10.6)
[2024-05-13 19:20] LABS: ALT 22 U/L (4-34); AST 21 U/L (14-36); African American GFR (CKD) >90 (>60 ml/min/1.73 sqM); Albumin 4.2 g/dL (3.5-5.0); Alkaline Phosphatase 64 U/L (38-126); Anion Gap 5 mmol/L; Blood Urea Nitrogen 13 mg/dL (7-17); Calcium 8.9 mg/dL (8.4-10.2); Carbon Dioxide 29 mmol/L (22-30); Chloride 104 mmol/L (98-107); Glucose 66 mg/dL (74-99); Non-African American GFR(CKD) >90 (>60 ml/min/1.73 sqM); Potassium 3.7 mmol/L (3.5-5.1); Sodium 138 mmol/L (137-145); Total Bilirubin 0.5 mg/dL (0.2-1.3); Total Protein 7.1 g/dL (6.3-8.2)
[2024-05-13] MEDS: ACETAMINOPHEN TAB 325 MG TAB PO STA (19:38)
[2024-05-13] MEDS: METOCLOPRAMIDE 5 MG/ML 2 ML VIAL IVP STA (19:40)
--- NOTE | 2024-05-13 19:40 | CT ---
EXAMINATION TYPE: CT brain wo con DATE OF EXAM: 05/13/2024 7:21 PM COMPARISON: None. CLINICAL INDICATION: Female, 39 years old with history of head injury/dizziness, headache and dizzine ss 1 week after head injury TECHNIQUE: Brain: Axial CT images of the brain were obtained with coronal and sagittal reformats created and rev iewed. Contrast used: None. Oral contrast used: None. CT DLP: 1131.2 mGycm, Automated exposure control for dose reduction was used. FINDINGS: Brain: Extra-axial spaces: No abnormal extra-axial fluid collections. Ventricular system: Within normal limits Cerebral parenchyma: No acute intraparenchymal hemorrhage or mass effect. The melton-white junction is well differentiated. Cerebellum: Unremarkable. Mass effect: No evidence of midline shift. Intracranial vasculature: unremarkable Soft tissues: Normal. Calvarium/osseous structures: No depressed skull fracture. Paranasal sinuses and mastoid air cells: Mild scattered paranasal sinus disease. Visualized orbits: Orbital contents are intact. IMPRESSION: No acute intracranial process. [facility], , 05/13/2024 7:38 PM
[2024-05-13] MEDS: SODIUM CHLORIDE 0.9% 1,000 ML IV STA (19:41)
[2024-05-13] MEDS: DEXAMETHASONE SOD PHOSPHATE 4 MG/ML 1 ML VIAL IVP STA (20:57)
[2024-05-13] MEDS: KETOROLAC 15 MG/ML 1 ML VIAL IVP STA (20:57)
[2024-05-13 21:11] VITALS: BP 130/83; PULSE 77
== END 2024-05-13 21:11 | disposition home or self-care (01) ==
LOC: EC 15:43
DX: R51.9 Headache, unspecified (principal); Z87.891 Personal history of nicotine dependence; Z88.1 Allergy status to other antibiotic agents; Z88.8 Allergy status to other drugs, medicaments and biological substances; W22.8XXA Striking against or struck by other objects, initial encounter
CPT/HCPCS: 36415; 80053; 85025; 81003; 81025; 87636; 70450; 99284; 96374; 96375 ×2; 96361; J1100; J2765; J1885